=== PATIENT | female | born 1930 | race African-American/Black ===

== ENCOUNTER 2016-08-23 10:22 | Inpatient (IN) | payer MEDICARE, OTHER ==
[~2016-08-23] VITALS: Ht 149.9 cm; Wt 68.0 kg
[~2016-08-23 10:22] MED LIST: ALBU-136; ASPIRIN 81MG; FURO-572 PO; LISI-420 PO; NIFE60TE5 PO
[2016-08-23 10:26] VITALS: BP 201/93
--- NOTE | 2016-08-23 10:37 | NUR ---
DR JASSO AT BEDSIDE.
[2016-08-23] MEDS ORDERED: predniSONE 20 MG TAB PO ONE (10:45)
[2016-08-23] MEDS ORDERED: IPRATROPIUM 0.02% 0.5 MG/2.5 ML NEBU INH ONE (10:45)
[2016-08-23] MEDS ORDERED: ALBUTEROL 0.083% 2.5 MG/3 ML NEBU INH ONE (10:45)
--- NOTE | 2016-08-23 10:45 | NUR ---
PATIENT BIB DAUGHTER WITH C/O SOB AND PRODUCTIVE COUGH X YELLOW 1 MONTH GOT WORSE THE LAST 3 DAYS;HX OF ASTHMA, CABG X3 1994, HTN;RX OF ALBUTEROL ,ISORBIDE, GABAPENTIN, LISONOPRIL , SIMVASTAIN . PT STATES SHE FEELS CONGESTED . DENIES N/V/D; SKIN IS PINK/WARM/DRY; AAOX4 WITH EVEN AND STEADY GAIT;PT DENIES ANY CP AT THIS TIME; PATIENT STATES PAIN OF 0/10 AT THIS TIME;PATIENT POSITIONED FOR COMFORT; HOB ELEVATED; BEDRAILS UP X2; BED DOWN. ALL MONITORS IN PLACED;
--- NOTE | 2016-08-23 10:53 | NUR ---
RADIOLOGY AT [facility] THERAPY ATTEMPT AT A LATER TIME
--- NOTE | 2016-08-23 10:54 | NUR ---
XRAY AT BEDSIDE;
--- NOTE | 2016-08-23 10:58 | NUR ---
ADMITTING DX: SEEKING MEDICAL ATTENTION C/O SOB PRODUCTIVE COUGH WITH YELLOW SECRETIONS X 1 MO WORSENING PAST 3 DAYS HX: ASTHMA AWAKE AND ALERT RESPONSIVE TO WIRELESS OPERATOR VERBAL COMMANDS IN HFW POSITION EDUACTION PROVIDED TO PATIENT AND DAUGHTER WITH ACKNOWLEDGEMENT ON HHN THERAPY AND RESPIRATORY DRUGS HHN THERAPY GIVEN A ORDERED ENCOURAGED DEEP BREATH SND COUGH SPUTUM SPECIMEN COLLECTED MODERATE THICK YELLOWS ECRETIONS TOLERATED HHN THERAPY WITHOUT INCDIENT
[2016-08-23 11:33] LABS: BASOPHILS # (AUTO) 0.1 K/uL (0.00-0.22); BASOPHILS % (AUTO) 1.6 % (0.0-2.0); EOSINOPHILS # (AUTO) 0.1 K/uL (0-0.4); EOSINOPHILS % (AUTO) 1.5 % (0.0-4.0); HEMATOCRIT 34.5 % (36-48); HEMOGLOBIN 11.2 g/dL (12.0-16.0); LYMPHOCYTES # (AUTO) 1.7 K/uL (2.5-16.5); MEAN CORPUSCULAR HEMOGLOBIN 31 pg (27-31); MEAN CORPUSCULAR HGB CONC 33 g/dL (33-37); MEAN CORPUSCULAR VOLUME 95 fL (80-94); MONOCYTES # (AUTO) 0.5 K/uL (0.8-1.0); MONOCYTES % (AUTO) 5.5 % (1.7-9.3); NEUTROPHILS # (AUTO) 5.9 K/uL (1.8-7.7); NEUTROPHILS % (AUTO) 70.4 % (42.2-75.2); PLATELET COUNT (AUTO) 245 K/uL (140-450); RED BLOOD CELL COUNT(AUTO) 3.64 MIL/uL (4.20-5.40); RED CELL DISTRIBUTION WIDTH 12.1 % (11.6-13.7); WHITE BLOOD COUNT (AUTO) 8.3 K/uL (4.8-10.8)
--- NOTE | 2016-08-23 11:38 | NUR ---
PT RESTING ON BED;NO ACUTE DISTRESS NOTED;WILL CONTINUE TO MONITOR PT.
[2016-08-23 11:43] LABS: ANION GAP 11.3 (8-16); CALCIUM 9.7 mg/dL (8.5-10.1); CARBON DIOXIDE 27.9 mmol/L (21-32); CHLORIDE 103 mmol/L (98-107); CREATININE 1.2 mg/dL (0.6-1.3); GLUCOSE 90 mg/dL (74-106); POTASSIUM 4.2 mmol/L (3.5-5.1); SODIUM SERUM 138 mmol/L (136-145); UREA NITROGEN, BLOOD 15 mg/dL (7-18)
[2016-08-23 11:51] LABS: LACTIC ACID 1.1 mmol/L (0.4-2.0)
[2016-08-23 11:53] LABS: PARTIAL THROMBOPLASTIN TIME 29.8 secs (22-35.6); PROTHROMBIN TIME 10.6 secs (10.8-13.4)
[2016-08-23 11:58] LABS: ALANINE AMINOTRANSFERASE 12 U/L (14-59); ALBUMIN 3.1 g/dL (3.4-5.0); ALKALINE PHOSPHATASE 63 U/L (46-116); ASPARTATE AMINOTRANSFERASE 19 U/L (15-37); TOTAL BILIRUBIN 0.4 mg/dL (0.0-1.0)
[2016-08-23] MEDS ORDERED: LEVOFLOXACIN 500 MG/D5W PREMIX 100 ML IV ONE (12:05)
[2016-08-23] MEDS ORDERED: MORPHINE SULFATE 2 MG/ML SYR IVP PRN (12:55)
[2016-08-23] MEDS ORDERED: ACETAMINOPHEN 325 MG TAB PO PRN (12:55)
[2016-08-23] MEDS ORDERED: ONDANSETRON 4 MG/2 ML VIAL IVP PRN (12:55)
--- NOTE | 2016-08-23 12:56 | NUR ---
ASKED PT IF SHE CAN URINATE;PT STATES SHE CANNOT AT THIS MOMENT.
[2016-08-23 13:09] LABS: BLOOD GAS BASE EXCESS -0.4 mmol/L (-2.0-2.0); BLOOD GAS HCO3 23.5 mmol/L; BLOOD GAS PCO2 35.9 mmHg (20-50); BLOOD GAS PH 7.433 (7.35-7.45); BLOOD GAS PO2 65.8 mmHg
[2016-08-23 13:10] LABS: BLOOD GAS O2 SAT% 92.1 % (92.0-98.5)
--- NOTE | 2016-08-23 13:10 | NUR ---
Patient will be admitted to care of DR KEITH. Admited to TELE. Will go to room 122 B. Belongings list completed. Report to DARREN COLIN.
--- NOTE | 2016-08-23 13:59 | NUR ---
AWAKE AND ALERT NO SOB NOTED PATIENT WITH LUNCH TRAY AT THIS TIME LOT BOSS TO ATTEMPT HHN THERAPY AT A LATER TIME
--- NOTE | 2016-08-23 14:00 | NUR ---
RECEIVED PT FROM ER NURSES. PT IS AMBULATORY WITH CANE, GAIT SLIGHTLY UNSTEADY, NEEDS 1 ASSIST. PT WENT TO BATHROOM. TOLERATED WELL. ORIENTED PT TO ROOM AND CALL CABALLERO. PT IS A&OX4. CALL LIGHT WITHIN REACH. WILL CONTINUE TO MONITOR.
[2016-08-23] MEDS: IPRATROPIUM 0.02% 0.5 MG/2.5 ML NEBU IH SCH ×2 (14:21→19:21)
[2016-08-23] MEDS: ALBUTEROL 0.083% 2.5 MG/3 ML NEBU IH SCH ×2 (14:21→19:21)
[2016-08-23 15:00] VITALS: BP 162/85
[2016-08-23] MEDS: AZITHROMYCIN 500 MG in DEXTROSE 5% 250 ML IV SCH (15:55)
--- NOTE | 2016-08-23 16:00 | NUR ---
PT IS RESTING COMFORTABLY IN BED. CALL LIGHT WITHIN REACH. WILL CONTINUE TO MONITOR.
[2016-08-23 16:44] LABS: BILIRUBIN,URINE NEGATIVE (NEGATIVE); BLOOD, URINE NEGATIVE (NEGATIVE); COLOR,URINE YELLOW (YELLOW); LEUKOCYTE ESTERASE ,URINE NEGATIVE (NEGATIVE); NITRITE, URINE NEGATIVE (NEGATIVE); PH,URINE 5.5 (5.0-9.0); PROTEIN,URINE NEGATIVE (NEGATIVE); UGLUCOSE NEGATIVE (NEGATIVE); UROBILINOGEN,URINE 0.2 EU/dL (0.2 - 1)
[2016-08-23 16:54] LABS: APPEARANCE,URINE CLEAR (CLEAR)
--- NOTE | 2016-08-23 17:34 | NUR ---
PT CALLED TO USE BATHROOM. STATED SLIGHTLY DIZZY. NURSE ASSISTED. TOLERATED WELL. BACK TO BED. CALL LIGHT WITHIN REACH. WILL CONTINUE TO MONITOR.
[2016-08-23] MEDS ORDERED: methylPREDNISolone SS 40 MG in WATER STERILE 1 ML IV SCH (18:00)
[2016-08-23] MEDS: methylPREDNISolone SS 40 MG/ML VIAL IVP SCH (18:05)
[2016-08-23 18:18] LABS: BACTERIA,URINE None Seen /HPF (None Seen); RBC,URINE NONE SEEN /HPF (0-5); SQUAMOUS EPITHELIAL CELL,UR None Seen /LPF (0-3 (FEW)); WBC,URINE NONE SEEN /HPF (0-5)
--- NOTE | 2016-08-23 19:37 | NUR ---
ENDORSED CARE OF PT TO CARTON MACHINE OPERATOR NURSE AT BEDSIDE. PT IN STABLE CONDITION.
--- NOTE | 2016-08-23 20:15 | NUR ---
RECEIVED REPORT FROM CHARGE NURSE AWAKE AND ALERT. TALKING ON THE PHONE. ABLE TO VERBALIZE NEEDS WELL. TELEMETRY MONITORING. CARE PLANS FOR THE NIGHT DISCUSSED WITH HER AND CALL LIGHT USE EXPLAINED . DX. PNA AND ASTHMA EXACERBATION.
[2016-08-23 20:33] VITALS: BP 138/78
[2016-08-24] MEDS: methylPREDNISolone SS 40 MG/ML VIAL IVP SCH ×4 (00:39→18:20)
--- NOTE | 2016-08-24 00:40 | NUR ---
SLEPT WELL. AWAKE AT THIS TIME RT WANTS TO URINATE. ASSISTED BY TAX DIRECTOR. BACK TO SLEEP WITH OUT COMPLAINTS.
[2016-08-24 00:55] VITALS: BP 132/78
[2016-08-24] MEDS: ALBUTEROL 0.083% 2.5 MG/3 ML NEBU IH SCH ×4 (01:16→19:21)
[2016-08-24] MEDS: IPRATROPIUM 0.02% 0.5 MG/2.5 ML NEBU IH SCH ×4 (01:17→19:21)
[2016-08-24 04:26] VITALS: BP 153/77
--- NOTE | 2016-08-24 04:32 | NUR ---
SLEEPING WELL. NO RESTLESSNESS NOTED. WITH SCHEDULED BREATHING TREATMENTS. NO SOB NOTED AT THIS TIME.
[2016-08-24 05:47] LABS: HEMOGLOBIN 10.7 g/dL (12.0-16.0); MEAN CORPUSCULAR HEMOGLOBIN 31 pg (27-31); MEAN CORPUSCULAR HGB CONC 33 g/dL (33-37); MEAN CORPUSCULAR VOLUME 95 fL (80-94); PLATELET COUNT (AUTO) 260 K/uL (140-450); RED BLOOD CELL COUNT(AUTO) 3.47 MIL/uL (4.20-5.40); RED CELL DISTRIBUTION WIDTH 11.7 % (11.6-13.7); WHITE BLOOD COUNT (AUTO) 9.5 K/uL (4.8-10.8)
[2016-08-24 06:14] LABS: ALANINE AMINOTRANSFERASE 12 U/L (14-59); ALBUMIN 2.8 g/dL (3.4-5.0); ALKALINE PHOSPHATASE 54 U/L (46-116); ASPARTATE AMINOTRANSFERASE 15 U/L (15-37); CALCIUM 9.6 mg/dL (8.5-10.1); CARBON DIOXIDE 27.1 mmol/L (21-32); CHLORIDE 104 mmol/L (98-107); CREATININE 1.1 mg/dL (0.6-1.3); GLUCOSE 143 mg/dL (74-106); POTASSIUM 4.1 mmol/L (3.5-5.1); SODIUM SERUM 137 mmol/L (136-145); TOTAL BILIRUBIN 0.3 mg/dL (0.0-1.0); TOTAL PROTEIN, SERUM 7.6 g/dL (6.4-8.2); UREA NITROGEN, BLOOD 12 mg/dL (7-18)
[2016-08-24 06:40] LABS: BAND % (MANUAL) 2 % (0-8); LYMPHOCYTES % (MANUAL) 5 % (20-46); MONOCYTES % (MANUAL) 3 % (5-12); NEUTROPHILS % (MANUAL) 90 (43-65)
--- NOTE | 2016-08-24 07:20 | NUR ---
RECEIVED PT FROM CHARGE AUTHORIZER NURSE AT BEDSIDE. PT IS A&OX4. ON NC 2L NOW OXYGEN SAT 98%. NO SOB AT THIS TIME. PT HAS IV ON R AC 20G SL. CALL LIGHT WITHIN REACH. WILL CONTINUE TO MONITOR.
[2016-08-24 08:00] VITALS: BP 159/92
[2016-08-24] MEDS: LISINOPRIL 20 MG TAB PO SCH (08:55)
[2016-08-24] MEDS: ASPIRIN 81 MG TAB.CHEW PO SCH (08:55)
[2016-08-24] MEDS: NIFEdipine 60 MG TABER PO SCH (08:56)
[2016-08-24] MEDS: FUROSEMIDE 20 MG TAB PO SCH (08:56)
[2016-08-24] MEDS: ENOXAPARIN 30 MG/0.3 ML SYR SUBQ SCH (08:57)
--- NOTE | 2016-08-24 09:10 | NUR ---
TOLERATED MORNING MEDS WELL. CALL LIGHT WITHIN REACH. WILL CONTINUE TO MONITOR.
--- NOTE | 2016-08-24 09:18 | NUR ---
PATIENT HAS BEEN SCREENED AND CATEGORIZED MODERATE NUTRITION RISK. PATIENT WILL BE SEEN WITHIN 3-5 DAYS OF ADMISSION. 08/26/16-08/28/[address]
--- NOTE | 2016-08-24 11:00 | NUR ---
PHYSICAL THERAPY WORKED WITH PT. OXY SAT 98%, NO SOB AFTER. WILL CONTINUE TO MONITOR.
[2016-08-24 12:09] VITALS: BP 129/63
--- NOTE | 2016-08-24 12:22 | NUR ---
FAXED INITIAL REVIEW TO [facility] [place] [phone] PHONE ANDERSON [phone]
--- NOTE | 2016-08-24 13:00 | NUR ---
PT IS SLEEPING IN BED. NO DISTRESS NOTED. CALL LIGHT WITHIN REACH. WILL CONTINUE TO MONITOR.
--- NOTE | 2016-08-24 15:00 | NUR ---
GRANDDAUGHTER AT BEDSIDE. NO COMPLAINTS AT THIS TIME. CALL LIGHT WITHIN REACH. WILL CONTINUE TO MONITOR.
[2016-08-24] MEDS: AZITHROMYCIN 500 MG in DEXTROSE 5% 250 ML IV SCH (15:13)
[2016-08-24 16:00] VITALS: BP 147/73
--- NOTE | 2016-08-24 17:30 | NUR ---
PT IS EATING DINNER IN BED. NO COMPLAINTS AT THIS TIME. CALL LIGHT WITHIN REACH. WILL CONTINUE TO MONITOR.
--- NOTE | 2016-08-24 19:30 | NUR ---
ENDORSED CARE OF PT TO PACKING AND SHIPPING CLERK NURSE AT BEDSIDE. PT IN STABLE CONDITION.
--- NOTE | 2016-08-24 19:32 | NUR ---
RECEIVED PT FROM CRISTI RN PT IS AAOX4 AMBULATES WITH CAMPGROUND HAND HL PATENT ON RT AC NOT SOB NOTED RT IS HERE AND WILL GIVE A BREATHING TX
[2016-08-24 20:00] VITALS: BP 96/61
--- NOTE | 2016-08-24 22:00 | NUR ---
PT REPOSITIONED WATCHING TV DENIES ANY DISCOMFORT ON TELEMETRY SR
[2016-08-25] VITALS: BP 104/56
[2016-08-25] MEDS: methylPREDNISolone SS 40 MG/ML VIAL IVP SCH ×3 (00:01→12:03)
[2016-08-25] MEDS: ALBUTEROL 0.083% 2.5 MG/3 ML NEBU IH SCH ×3 (01:08→12:27)
[2016-08-25] MEDS: IPRATROPIUM 0.02% 0.5 MG/2.5 ML NEBU IH SCH ×3 (01:08→12:27)
--- NOTE | 2016-08-25 01:30 | NUR ---
RESP THERAPY IS HERE AND GIVE BREATHING TX PT ON TELEMETRY SR NOT SOB NOTED
[2016-08-25 04:00] VITALS: BP 106/62
--- NOTE | 2016-08-25 04:00 | NUR ---
SPONGE BATHGIVEN LINEN CHANGED PT VOIDING WELL ON TELEMETRY SR NOT SOB NOTED RESP THERAPY HERE GIVEN BREATHING TX
[2016-08-25 05:45] LABS: HEMATOCRIT 33.3 % (36-48); HEMOGLOBIN 11.1 g/dL (12.0-16.0); MEAN CORPUSCULAR HEMOGLOBIN 32 pg (27-31); MEAN CORPUSCULAR HGB CONC 33 g/dL (33-37); MEAN CORPUSCULAR VOLUME 96 fL (80-94); PLATELET COUNT (AUTO) 258 K/uL (140-450); RED BLOOD CELL COUNT(AUTO) 3.47 MIL/uL (4.20-5.40); RED CELL DISTRIBUTION WIDTH 11.9 % (11.6-13.7); WHITE BLOOD COUNT (AUTO) 21.4 K/uL (4.8-10.8)
[2016-08-25 06:25] LABS: ALANINE AMINOTRANSFERASE 13 U/L (14-59); ALBUMIN 2.8 g/dL (3.4-5.0); ALKALINE PHOSPHATASE 51 U/L (46-116); ASPARTATE AMINOTRANSFERASE 12 U/L (15-37); CALCIUM 9.3 mg/dL (8.5-10.1); CARBON DIOXIDE 26.4 mmol/L (21-32); CHLORIDE 102 mmol/L (98-107); CREATININE 1.4 mg/dL (0.6-1.3); GLUCOSE 166 mg/dL (74-106); POTASSIUM 4.4 mmol/L (3.5-5.1); SODIUM SERUM 136 mmol/L (136-145); TOTAL BILIRUBIN 0.2 mg/dL (0.0-1.0); TOTAL PROTEIN, SERUM 7.4 g/dL (6.4-8.2); UREA NITROGEN, BLOOD 25 mg/dL (7-18)
[2016-08-25 06:40] LABS: NEUTROPHILS % (MANUAL) 94 (43-65)
[2016-08-25 06:41] LABS: BAND % (MANUAL) 1 % (0-8); LYMPHOCYTES % (MANUAL) 3 % (20-46); MONOCYTES % (MANUAL) 2 % (5-12); PLATELET ESTIMATE ADEQUATE
--- NOTE | 2016-08-25 07:04 | NUR ---
PT AWAKE AAOX4 DENIES ANY AIN OR DISTRESS ON TELEMETRY SR
--- NOTE | 2016-08-25 07:05 | NUR ---
ASSUMED CONTINUITY OF CARE. NO SIGNS AND SYMPTOMS OF ACUTE DISTRESS NOTED. INITIAL ASSESSMENT DONE. KEEP COMFORTABLE ON BED. EXPLAINED DIAGNOSIS, PLAN OF CARE, PAIN MANAGEMENT TEACHING, USE OF CALL LIGHT/BED/TV/BATHROOM. FALL PRECAUTION APPLIED. CALL LIGHT WITHIN REACH.
[2016-08-25 08:00] VITALS: BP 118/59
--- NOTE | 2016-08-25 08:00 | NUR ---
Patient's Plan of Care was discussed and reviewed with CHIEF OF HOSPITAL MEDICINE: ROSA BRYANT
[2016-08-25] MEDS: LISINOPRIL 20 MG TAB PO SCH (08:39)
[2016-08-25] MEDS: ASPIRIN 81 MG TAB.CHEW PO SCH (08:40)
[2016-08-25] MEDS: NIFEdipine 60 MG TABER PO SCH (08:40)
[2016-08-25] MEDS: FUROSEMIDE 20 MG TAB PO SCH (08:40)
[2016-08-25] MEDS: ENOXAPARIN 30 MG/0.3 ML SYR SUBQ SCH (08:42)
--- NOTE | 2016-08-25 09:04 | NUR ---
PT. CAME FOR PT. EVAL AND TREATMENT. TOLERATED WELL. NO C/O PAIN. NO SOB, NOTED.
--- NOTE | 2016-08-25 10:51 | NUR ---
FAXED CONCURRENT REVIEW TO [facility] [place] [phone] PHONE ANDERSON [phone]
--- NOTE | 2016-08-25 10:56 | NUR ---
WENT TO BATHROOM WITH MINIMUM ASSISTANCE. TOLERATED WELL. NO SOB, NOTED. KEEP FREE FROM FALL.
[2016-08-25 12:00] VITALS: BP 130/61
--- NOTE | 2016-08-25 13:00 | NUR ---
NANNETTE XIONG CAME, INFORMED OF PT. LATEST LABS RESULTS.
--- NOTE | 2016-08-25 15:10 | NUR ---
EXPLAINED TO PT. AND PT. DAUGHTER -ZANA ABOUT MD D/C ORDER, D/C INSTRUCTIONS AND TEACHING, MD D/C PRESCRIPTION LIST EDUCATION, PRIMARY CARE PHYSICIAN FOLLOW-UP IN 1 WEEK, DIAGNOSIS, DIET, PAIN MANAGEMENT TEACHING. PT. AND PT. DAUGHTER -ZANA VERBALIZED UNDERSTANDING.
[2016-08-25] MEDS: AZITHROMYCIN 500 MG in DEXTROSE 5% 250 ML IV SCH (15:45)
[2016-08-25 16:00] VITALS: BP 102/61
--- NOTE | 2016-08-25 17:05 | NUR ---
D/C VIA WHEELCHAIR, ACCOMPANIED BY PT. DAUGHTER -ZANA. AWAKE, ALERT, AND ORIENTED X4. SPEECH CLEAR. NO C/O PAIN. NO SOB, NOTED. IN STABLE CONDITION. INFORMED CHARGE NURSE PAULA VELÁSQUEZ.
== END 2016-08-25 17:05 | disposition home or self-care (01) | DRG 193 ==
LOC: MED 10:22 → MTU 12:58
PROVIDERS: ADMIT Hospitalist; ATTEND Hospitalist
DX: J18.9 Pneumonia, unspecified organism (principal); J96.21 Acute and chronic respiratory failure with hypoxia; J45.901 Unspecified asthma with (acute) exacerbation; I25.10 Atherosclerotic heart disease of native coronary artery without angina pectoris; E78.5 Hyperlipidemia, unspecified; I10 Essential (primary) hypertension; Z87.891 Personal history of nicotine dependence; Z95.1 Presence of aortocoronary bypass graft; Z88.2 Allergy status to sulfonamides; Z79.899 Other long term (current) drug therapy; Z82.49 Family history of ischemic heart disease and other diseases of the circulatory system
CPT/HCPCS: 36415; 36600; 71010; 80053; 81001; 82803; 83605; 83880; 84484; 85025; 85610; 85730; 87040; 87070; 87081; 87205; 89220; 93005; 94640; 96365; 97110; 97116; 97530; 99285; J0456; J1650; J1956; J2920; J7030; J7060; J7512; J7613; J7644; Q0092

== ENCOUNTER 2016-10-17 22:24 | Inpatient (IN) | payer MEDICARE ==
[~2016-10-17] VITALS: Ht 149.9 cm; Wt 63.5 kg
[2016-10-17 22:31] VITALS: BP 123/57
[2016-10-17] MEDS ORDERED: DOCU-67 PO (22:40)
[2016-10-17] MEDS ORDERED: LISI5TAB18 PO (22:40)
[2016-10-17] MEDS ORDERED: PRON INH (22:40)
[2016-10-17] MEDS ORDERED: ASPI81CT89 PO (22:40)
[2016-10-17] MEDS ORDERED: ISOS10TA9 PO (22:40)
[2016-10-17] MEDS ORDERED: ALBU0.0946 IH (22:40)
[2016-10-17] MEDS ORDERED: ALBU117P IH (22:40)
[2016-10-17] MEDS ORDERED: SIMV20TA1 PO (22:40)
[2016-10-17] MEDS ORDERED: FLONAS NS (22:41)
[2016-10-17] MEDS ORDERED: FLUT1BLS IH (22:41)
--- NOTE | 2016-10-17 22:44 | NUR ---
BIB WHEELCHAIR TO ER BED 7
--- NOTE | 2016-10-17 22:50 | NUR ---
86 Y/O F W/C/O SOB, AND COUGH X 1WK. MED HX PNA, ASTHMA, COPD, HTN, OPEN HEART SURGERY, GUADRUPLE BYPASS 1994. O2 SAT 98 % RA, VSS. LABORED BREATHING NOTED, ER MD MADE AWARE. RT CALLED AT BEDSIDE.
--- NOTE | 2016-10-17 22:50 | NUR ---
Patient being evaluated by physician at bedside.
[2016-10-17 23:17] LABS: HEMOGLOBIN 10.6 g/dL (12.0-16.0); MEAN CORPUSCULAR HEMOGLOBIN 31 pg (27-31); MEAN CORPUSCULAR HGB CONC 32 g/dL (33-37); MEAN CORPUSCULAR VOLUME 96 fL (80-94); PLATELET COUNT (AUTO) 336 K/uL (140-450); RED BLOOD CELL COUNT(AUTO) 3.45 MIL/uL (4.20-5.40); RED CELL DISTRIBUTION WIDTH 12.3 % (11.6-13.7); WHITE BLOOD COUNT (AUTO) 17.6 K/uL (4.8-10.8)
[2016-10-17 23:31] LABS: ANION GAP 14.5 (8-16); CARBON DIOXIDE 26.8 mmol/L (21-32); CHLORIDE 100 mmol/L (98-107); CREATININE 1.4 mg/dL (0.6-1.3); GLUCOSE 97 mg/dL (74-106); POTASSIUM 3.3 mmol/L (3.5-5.1); SODIUM SERUM 138 mmol/L (136-145); UREA NITROGEN, BLOOD 22 mg/dL (7-18)
[2016-10-17 23:32] LABS: LYMPHOCYTES % (MANUAL) 15 % (20-46); MONOCYTES % (MANUAL) 6 % (5-12)
[2016-10-17 23:39] LABS: ALBUMIN 2.7 g/dL (3.4-5.0); ASPARTATE AMINOTRANSFERASE 20 U/L (15-37); TOTAL BILIRUBIN 0.6 mg/dL (0.0-1.0)
--- NOTE | 2016-10-17 23:40 | NUR ---
PT TAKEN FOR CT SCAN VIA [facility].
--- NOTE | 2016-10-18 00:02 | NUR ---
PT BACK FROM CT SCAN.
[2016-10-18] MEDS ORDERED: VANCOMYCIN PER PHARMACY MC PRN (00:25)
[2016-10-18] MEDS ORDERED: MEROPENEM 1,000 MG in NACL 0.9% 100 ML IV ONE (00:25)
[2016-10-18] MEDS ORDERED: VANCOMYCIN 1GM/DEXT 5% PREMIX 200 ML IV ONE (00:25)
[2016-10-18] MEDS ORDERED: MEROPENEM 1,000 MG VIAL IV ONE (00:38)
[2016-10-18] MEDS ORDERED: VANCOMYCIN 1,000 MG VIAL ONE (01:06)
--- NOTE | 2016-10-18 01:12 | NUR ---
PT RESTING IN BED, CURRENTLY RECEIVING IV ANTIBIOTICS, NO S/S OF DISTRESS NOTED. DAUGHTER AT BEDSIDE.
[2016-10-18] MEDS ORDERED: LORazepam 2 MG/ML VIAL IVP PRN (02:00)
[2016-10-18] MEDS ORDERED: MORPHINE SULFATE 2 MG/ML SYR IVP PRN (02:00)
[2016-10-18] MEDS ORDERED: ONDANSETRON 4 MG/2 ML VIAL IVP PRN (02:00)
[2016-10-18] MEDS ORDERED: ACETAMINOPHEN 325 MG TAB PO PRN (02:00)
--- NOTE | 2016-10-18 02:18 | NUR ---
Patient will be admitted to care of DR GRIMALDO. Admited to TELEMETRY. Will go to [id number] . Belongings list completed. Report to DARREN YEN.
--- NOTE | 2016-10-18 02:20 | NUR ---
PT TRASFERRED TO FLOOR VIA [facility]. ACCOMPANIED BY RN AND EMT.
[2016-10-18 02:45] VITALS: BP 158/65
--- NOTE | 2016-10-18 02:45 | NUR ---
PATIENT CAME FROM THE ER VIA GURNEY ACCOMPANIED BY DAUGHTER. PT IS AOX3, ABLE TO MAKE NEEDS KNOWN. IS ON O2 VIA NC AT 2 L, WELL TOLERATED BY PT. WITH AN IV TO THE LAC 20 G WITH VANCOMYCIN RUNNING, INTACT AND PATENT. INITAL ASSESSMENT DONE. ASSESSMENT QUESTIONS ANSWERED BY DAUGHTER. ORIENTED PATIENT AND DAUGHTER TO THE UNIT, VERBALIZED UNDERSTANDING. WILL CONTINUE TO MONITOR. ALL NEEDS ATTENDED. CALL LIGHT WITHIN REACH. SAFETY CHECKS IN PLACE.
--- NOTE | 2016-10-18 03:30 | NUR ---
RT CALLED AND SAID THAT THE PATIENT DOES NOT NEED THE O2.
[2016-10-18 04:00] VITALS: BP 138/66
[2016-10-18] MEDS ORDERED: PIPERACILLIN/TAZOBACTAM 2.25 GM VIAL IV ONE (04:07)
--- NOTE | 2016-10-18 04:15 | NUR ---
VITALS STABLE. NO S/S OF DISTRESS. NO COMPLAINTS OF PAIN. HANGED ZOSYN. WILL CONTINUE TO MONITOR FOR ANY CHANGES.
[2016-10-18] MEDS: PIPER/TAZO 2.25GM/D5W PREMIX 50 ML IV SCH ×4 (04:17→21:22)
[2016-10-18] MEDS ORDERED: PIPERACILLIN/TAZOBACTAM 3.375 GM in DEXTROSE 5% 50 ML IV SCH (05:00)
--- NOTE | 2016-10-18 05:30 | NUR ---
ASSISTED PATIENT TO THE BATHROOM. NOTED PATIENT WITH WHEEZING AND PATIENT COMPLAINED OF SHORTNESS OF BREATH. SAID SHE WANTED A BREATHING TREATMENT. CALLED RT. Addendum: 10/18/16 at 0545 by Ashley Henderson RN PUT PT BACK ON O2 VIA NC AT 2 L
[2016-10-18] MEDS: ALBUTEROL 0.083% 2.5 MG/3 ML NEBU IH PRN ×3 (05:42→19:16)
[2016-10-18] MEDS: IPRATROPIUM 0.02% 0.5 MG/2.5 ML NEBU IH SCH ×4 (06:49→23:55)
--- NOTE | 2016-10-18 07:17 | NUR ---
ENDORSED TO MORNING SHIFT NURSE FOR CONTINUITY OF CARE, IN STABLE CONDITION.
--- NOTE | 2016-10-18 07:21 | NUR ---
RECEIVED HANDOFF REPORT FROM PM RN. PATIENT A&OX4. PATIENT DENIES PAIN. RALES NOTED IN UPPER LOBES. PATIENT DENIES COUGH AND SPUTUM. IV SITE PATENT AND INTACT. NO SIGNS AND SYMPTOMS OF ACUTE DISTRESS NOTED. CALL LIGHT WITHIN REACH. WILL CONTINUE TO MONITOR.
[2016-10-18 08:00] VITALS: BP 129/83
--- NOTE | 2016-10-18 09:15 | NUR ---
PATIENT HAS BEEN SCREENED AND CATEGORIZED HIGH NUTRITION RISK. PATIENT WILL BE SEEN WITHIN 1-2 DAYS OF ADMISSION. 10/18/16-10/19/[address]
--- NOTE | 2016-10-18 10:39 | NUR ---
AM MEDS GIVEN WITH EDUCATION. PATIENT VERBALIZED UNDERSTANDING. PATIENT HAS COUGH WITH SPUTUM PRODUCTION, MODERATE AMOUNT OF THICK BRIGHT YELLOW SPUTUM. PATIENT DENIES PAIN. HELPED PATIENT SIT UP IN BED. NO SIGNS AND SYMPTOMS OF ACUTE DISTRESS. CALL LIGHT WITHIN REACH. WILL CONTINUE TO MONITOR.
[2016-10-18 12:00] VITALS: BP 165/78
--- NOTE | 2016-10-18 13:11 | NUR ---
DR. ANNE IN TO SEE PATIENT. PLAN OF CARE DISCUSSED, PT VERBALIZED UNDERSTANDING. WILL CONTINUE TO MONITOR.
[2016-10-18 13:14] LABS: PROTHROMBIN TIME 10.6 secs (10.8-13.4)
--- NOTE | 2016-10-18 13:23 | NUR ---
PATIENT PRESENTING WITH INCREASED SOB WITH AMBULATION FROM SIDE OF BED INTO BED DESCENDING SATURATION TO 92% ON ROOM AIR POST HHN THERAPY PLACED PATIENT ON HUMIDIFIED SUPPLEMENTAL OXYGEN AT 2 LPM VIA NASAL CANNULA DORITA/RN NOTIFIED
--- NOTE | 2016-10-18 13:51 | NUR ---
10/18/16 RD INITIAL ASSESSMENT COMPLETED PLEASE REFER TO NUTRITION ASSESSMENT UNDER CARE ACTIVITY FOR ESTIMATED NUTRITIONAL NEEDS. 1. WHEN MEDICALLY FEASIBLE INITIATE PO DIET - 2G SODIUM, MECHANICAL SOFT DIET 2. RD TO FOLLOW-UP 2-[address]
--- NOTE | 2016-10-18 14:08 | NUR ---
CM NOTE INITIAL REVIEW FAXED TO [facility] / FAX# [phone], ATTN: ANDERSON [phone]
[2016-10-18] MEDS ORDERED: LIDOCAINE 1% 500 MG/50 ML VIAL INJ SCH (15:45)
--- NOTE | 2016-10-18 15:45 | NUR ---
RADIOLOGY HERE FOR THORACENTESIS. NO SIGNS OR SYMPTOMS OF ACUTE DISTRESS NOTED. WILL CONTINUE TO MONITOR.
[2016-10-18] MEDS ORDERED: LIDOCAINE 1% 50 ML ONE (15:53)
[2016-10-18 16:00] VITALS: BP 132/69
--- NOTE | 2016-10-18 17:01 | NUR ---
PATIENT STATES CHEST PAIN. DR. ANNE MADE AWARE. NO SIGNS OR SYMPTOMS OF ACUTE DISTRESS. CALL LIGHT WITHIN REACH. FAMILY AT BEDSIDE. WILL CONTINUE TO MONITOR.
[2016-10-18] MEDS: HYDROcodone/APAP 5/325 MG 1 TAB TAB PO PRN (17:46)
[2016-10-18 18:00] LABS: GLUCOSE,BODY FLUID 77 mg/dL
[2016-10-18 18:02] LABS: ALBUMIN,BODY FLUID 1.6 g/dL; APPEARANCE,SPUN,BODY FLUID CLEAR (CLEAR); APPEARANCE,UNSPUN,BODY FLUID CLEAR (CLEAR); COLOR,BODY FLUID YELLOW (LT YELLOW); SPECIMENTYPE,BODY FLUID THORACENTESIS; TOTAL VOLUME,BODY FLUID 650 mL
--- NOTE | 2016-10-18 19:14 | NUR ---
ENDORSED PLAN OF CARE TO PM RN. PATIENT STABLE. SAFETY MEASURES ENSURED. CALL LIGHT WITHIN REACH.
--- NOTE | 2016-10-18 19:15 | NUR ---
RECEIVED REPORT FROM AM NURSE. PT IS AOX4, ABLE TO MAKE NEEDS KNOWN. IS CURRENTLY HAVING HER BREATHING TREATMENT. WITH FAMILY AT BEDSIDE. WITH AN IV TO THE RIGHT FA 22 G, INTACT AND PATENT. NO S/S OF PAIN AT THIS TIME. INITIAL ASSESSMENT DONE. ON TELE MONITORING. REORIENTED PT TO THE UNIT, VERBALIZED UNDERSTANDING. WILL CONTINUE TO MONITOR. ALL NEEDS ATTENDED. CALL LIGHT WITHIN REACH. SAFETY CHECKS IN PLACE.
[2016-10-18 20:00] VITALS: BP 106/68
[2016-10-18 20:59] LABS: RBC, BODY FLUID 90 /cu. mm.; WBC, BODY FLUID 9 /cu. mm.
--- NOTE | 2016-10-18 22:12 | NUR ---
HANGED ONOFRESYN, IV SITE INTACT AND PATENT. WILL CONTINUE TO MONITOR.
--- NOTE | 2016-10-18 22:45 | NUR ---
ASSISTED PT TO THE BATHROOM, HAD NO S/S OF DISTRESS. WILL CONTINUE TO MONITOR. ALL NEED ATTENDED. CALL LIGHT WITHIN REACH. SAFETY CHECKS IN PLACE.
[2016-10-19] VITALS: BP 122/69
--- NOTE | 2016-10-19 | NUR ---
VITALS STABLE. NO S/S OF DISTRESS. NO COMPLAINTS OF PAIN. HAVING BREATHING TREATMENT AT BEDSIDE. WILL CONTINUE TO MONITOR FOR ANY CHANGES.
--- NOTE | 2016-10-19 01:55 | NUR ---
MADE ROUNDS. PATIENT ASLEEP. NO S/S OF DISTRESS. CALL LIGHT WITHIN REACH. SAFETY CHECKS IN PLACE. WILL CONTINUE TO MONITOR FOR ANY CHANGES.
[2016-10-19] MEDS: PIPER/TAZO 2.25GM/D5W PREMIX 50 ML IV SCH ×4 (03:26→21:08)
[2016-10-19 04:00] VITALS: BP 130/73
--- NOTE | 2016-10-19 04:00 | NUR ---
VITAL SIGNS STABLE. NO S/S OF DISTRESS. NO COMPLAINTS OF PAIN. WILL CONTINUE TO MONITOR. ALL NEEDS ATTENDED. CALL LIGHT WITHIN REACH. SAFETY CHECKS IN PLACE.
--- NOTE | 2016-10-19 05:05 | NUR ---
PT STATED THAT SHE WAS HAVING SHORTNESS OF BREATH, TURNED THE O2 TO 5 L, CALLED RT.
[2016-10-19] MEDS: ALBUTEROL 0.083% 2.5 MG/3 ML NEBU IH PRN ×2 (05:18→18:21)
--- NOTE | 2016-10-19 05:30 | NUR ---
WAS INFORMED BY RT THAT HE PUT THE O2 DOWN TO 4 L, WELL TOLERATED BY THE PATIENT. WILL CONTINUE TO MONITOR FOR ANY CHANGES.
[2016-10-19 06:34] LABS: HEMATOCRIT 32.4 % (36-48); HEMOGLOBIN 10.7 g/dL (12.0-16.0); MEAN CORPUSCULAR HEMOGLOBIN 31 pg (27-31); MEAN CORPUSCULAR HGB CONC 33 g/dL (33-37); MEAN CORPUSCULAR VOLUME 94 fL (80-94); PLATELET COUNT (AUTO) 348 K/uL (140-450); RED BLOOD CELL COUNT(AUTO) 3.45 MIL/uL (4.20-5.40); RED CELL DISTRIBUTION WIDTH 12.4 % (11.6-13.7); WHITE BLOOD COUNT (AUTO) 19.1 K/uL (4.8-10.8)
[2016-10-19] MEDS: IPRATROPIUM 0.02% 0.5 MG/2.5 ML NEBU IH SCH ×3 (06:53→18:21)
[2016-10-19 07:08] LABS: ALBUMIN 2.2 g/dL (3.4-5.0); ANION GAP 12.4 (8-16); ASPARTATE AMINOTRANSFERASE 24 U/L (15-37); CARBON DIOXIDE 28.6 mmol/L (21-32); CHLORIDE 99 mmol/L (98-107); CREATININE 1.6 mg/dL (0.6-1.3); GLUCOSE 90 mg/dL (74-106); MAGNESIUM 1.8 mg/dL (1.8-2.4); SODIUM SERUM 136 mmol/L (136-145); TOTAL BILIRUBIN 0.7 mg/dL (0.0-1.0); UREA NITROGEN, BLOOD 22 mg/dL (7-18)
--- NOTE | 2016-10-19 07:17 | NUR ---
ENDORSED TO AM SHIFT FOR CONTINUITY OF CARE, IN STABLE CONDITION. NO S/S OF DISTRESS.
--- NOTE | 2016-10-19 07:18 | NUR ---
PT AWAKE AND ALERT, NO SIGNS OF ACUTE DISTRESS. BOWEL SOUNDS ACTIVE IN ALL 4 QUADRANTS, SKIN INTACT. AMBULATORY WITH CANE. ON O2 4L NC. IV PATENT AND ASYMPTOMATIC. PATIENT DENIES PAIN AT THIS TIME. RE-ORIENTED TO HOSPITAL AND TO UNIT, PATIENT VERBALIZED UNDERSTANDING. BED IN LOW POSITION WITH BILATERAL HALF SIDE RAILS UP, CALL LIGHT WITHIN REACH. WILL CONTINUE TO MONITOR.
[2016-10-19 08:00] VITALS: BP 134/75
[2016-10-19 08:05] LABS: EOSINOPHILS % (MANUAL) 2 % (0-4); LYMPHOCYTES % (MANUAL) 10 % (20-46); MONOCYTES % (MANUAL) 2 % (5-12)
--- NOTE | 2016-10-19 09:18 | NUR ---
PT SLEEPING, NO SIGNS OF ACUTE DISTRESS. BED IN LOW POSITION WITH BILATERAL HALF SIDE RAILS UP, CALL LIGHT WITHIN REACH. WILL CONTINUE TO MONITOR.
[2016-10-19] MEDS ORDERED: VANCOMYCIN PER PHARMACY MC PRN (11:00)
[2016-10-19] MEDS: HYDROcodone/APAP 5/325 MG 1 TAB TAB PO PRN (11:42)
--- NOTE | 2016-10-19 11:50 | NUR ---
PT IS SITTING UP RIGHT, EATING LUNCH, DAUGHTER AT BEDSIDE. NO SIGNS OF ACUTE DISTRESS, BED ON LOW POSITION, BILATERAL HALF SIDE RAILS UP, CALL LIGHT WITHIN REACH. WILL CONTINUE TO MONITOR.
[2016-10-19 12:00] VITALS: BP 138/77
--- NOTE | 2016-10-19 13:30 | NUR ---
Clinical REVIEW FAXED TO [facility] / FAX# [phone], ATTN: ANDERSON [phone]
--- NOTE | 2016-10-19 13:30 | NUR ---
PAGED DR. ANNE PT UNABLE TO TOLERATE REGULAR DIET, STATES SHE EATS SOFT FOODS. WILL WAIT FOR NEW ORDER.
--- NOTE | 2016-10-19 13:35 | NUR ---
RECEIVED CALL BACK FROM DR ANNE, PER DR ANNE PUT PT ON SOFT CARDIAC DIET. NOTED, WILL CARRY OUT.
[2016-10-19] MEDS ORDERED: VANCOMYCIN 1GM/DEXT 5% PREMIX 200 ML IV SCH (14:00)
--- NOTE | 2016-10-19 15:55 | NUR ---
PT AWAKE AND RESTING IN BED, SHOWING NO SIGNS OF ACUTE DISTRESS, BED IN LOW POSITION, BILATERAL HALF SIDE RAILS UP, CALL LIGHT WITHIN REACH . WILL CONTINUE TO MONITOR.
[2016-10-19 16:00] VITALS: BP 116/64
--- NOTE | 2016-10-19 17:30 | NUR ---
CALLED RT TO REQUEST BREATHING TREATMENT.
--- NOTE | 2016-10-19 17:50 | NUR ---
PT SITTING UP IN BED EATING DINNER, DAUGHTER AT BEDSIDE. NO SIGNS OF ACUTE DISTRESS, BED IN LOW POSITION, CALL LIGHT WITHIN REACH. WILL CONTINUE TO MONITOR.
--- NOTE | 2016-10-19 19:27 | NUR ---
ENDORSED PT TO NIGHT NURSE FOR CONTINUITY OF CARE. PT AWAKE AND ALERT, NO SIGNS OF ACUTE DISTRESS. BED IN LOW POSITION, CALL LIGHT WITHIN REACH.
--- NOTE | 2016-10-19 19:30 | NUR ---
ASSUMED CARE OF PATIENT, AWAKE, ALERT AND ORIENTED. NO COMPLAINS. FAMILY AT BEDSIDE. CALL LIGHT WITHIN REACH.
--- NOTE | 2016-10-19 20:00 | NUR ---
PLAN OF CARE DISCUSSED WITH PATIENT, VERBALIZED UNDERSTANDING WELL. CALL LIGHT WITHIN REACH. ASSISTED WITH BRP WITH LINDAE.
[2016-10-19 21:27] VITALS: BP 98/64
[2016-10-20] VITALS: BP 118/56
--- NOTE | 2016-10-20 00:01 | NUR ---
ASSISTED WITH BRP BY BI TESTER. NO COMPLAINS. VITAL SIGNS STABLE. CALL LIGHT WITHIN REACH. AFEBRILE.
[2016-10-20] MEDS: IPRATROPIUM 0.02% 0.5 MG/2.5 ML NEBU IH SCH ×2 (00:18→07:19)
[2016-10-20] MEDS: PIPER/TAZO 2.25GM/D5W PREMIX 50 ML IV SCH ×2 (03:10→09:19)
[2016-10-20 04:40] VITALS: BP 127/79
--- NOTE | 2016-10-20 04:41 | NUR ---
VITAL SIGNS STABLE. NO COMPLAINS. AFEBRILE. CALL LIGHT WITHIN REACH.
[2016-10-20] MEDS: ALBUTEROL 0.083% 2.5 MG/3 ML NEBU IH PRN (05:35)
[2016-10-20 06:12] LABS: HEMOGLOBIN 9.2 g/dL (12.0-16.0); MEAN CORPUSCULAR HEMOGLOBIN 31 pg (27-31); MEAN CORPUSCULAR HGB CONC 33 g/dL (33-37); MEAN CORPUSCULAR VOLUME 95 fL (80-94); PLATELET COUNT (AUTO) 276 K/uL (140-450); RED BLOOD CELL COUNT(AUTO) 2.96 MIL/uL (4.20-5.40); RED CELL DISTRIBUTION WIDTH 12.1 % (11.6-13.7); WHITE BLOOD COUNT (AUTO) 15.3 K/uL (4.8-10.8)
[2016-10-20 07:11] LABS: LYMPHOCYTES % (MANUAL) 14 % (20-46); MONOCYTES % (MANUAL) 5 % (5-12)
--- NOTE | 2016-10-20 07:16 | NUR ---
ENDORSED CARE AT BEDSIDE WITH OBIE BANKS, PATIENT IN STABLE CONDITION.
[2016-10-20 07:25] LABS: ANION GAP 11.1 (8-16); CARBON DIOXIDE 27.5 mmol/L (21-32); CHLORIDE 102 mmol/L (98-107); CREATININE 1.9 mg/dL (0.6-1.3); GLUCOSE 87 mg/dL (74-106); POTASSIUM 3.6 mmol/L (3.5-5.1); SODIUM SERUM 137 mmol/L (136-145); UREA NITROGEN, BLOOD 23 mg/dL (7-18)
--- NOTE | 2016-10-20 07:26 | NUR ---
RECEIVED PT IN BED. AWAKE. ALERT, ORIENTEDX4. NO SOB NOTED. ON 4LPM NC. RESPIRATORY THERAPIST JUST FINISHED GIVING BREATHING TREATMENT. POSITIVE BOWEL SOUNDS NOTED ON FOUR QUADRANTS. PT AMBULATORY WITH ASSIST. SAFETYL PREACUTION IN PLACE. CALL LIGHT WITHIN REACH.
[2016-10-20 08:00] VITALS: BP 128/68
[2016-10-20] MEDS ORDERED: LEVO750T2 PO (10:07)
[2016-10-20] MEDS ORDERED: AMOX-999 PO (10:09)
[2016-10-20 12:00] VITALS: BP 133/79
--- NOTE | 2016-10-20 12:25 | NUR ---
CALLED DAUGHTER ZANA [phone] MADE AWARE OF DISCHARGE ORDER. DAUGHTER WILL COME TO THE HOSPITAL AND CONVEYOR MONITOR PT IN 30 MINS.
--- NOTE | 2016-10-20 13:00 | NUR ---
ZANA DAUGHTER CAME TO SATELLITE MANAGER PT. DISCHARGE INSTRUCTIONS AND HEALTH TEACHINGS PROVIDED, AND EXPLAINED TO PT AND DAUGHTER VERBALIZED UNDERSTANDING. NO SOB NOTED AT THIS TIME. DENIES ANY PAIN OR DISCOMFORT AT THIS TIME. NAME ARM BAND REMOVED. IV CANNULA REMOVED AND INTACT. TELEMONITOR REMOVED.
--- NOTE | 2016-10-20 13:01 | NUR ---
PT VERBALIZED UNDERSTANDING REGARDING DISCHARGE INSTRUCTIONS AND TEACHINGS AND SIGNED DISCHARGE PAPERS. DAUGHTER ZANA AT BEDSIDE.
--- NOTE | 2016-10-20 13:20 | NUR ---
PT WHEELED OUT TO THE HOSPITAL PARKING LOT WITH DAUGHTER ZANA ASSISTED BY JAYDON. NO SOB NOTED. PT DISCHARGED ON STABLE CONDITION.
== END 2016-10-20 13:20 | disposition home or self-care (01) | DRG 871 ==
LOC: MED 22:24 → MTU 10-18 02:03
PROVIDERS: ADMIT Hospitalist; ATTEND Hospitalist
PROC: 0W9B3ZZ Drainage of Left Pleural Cavity, Percutaneous Approach (ICD-10-PCS; principal; 2016-10-18)
DX: A41.9 Sepsis, unspecified organism (principal); J18.9 Pneumonia, unspecified organism; J90 Pleural effusion, not elsewhere classified; N17.9 Acute kidney failure, unspecified; J44.0 Chronic obstructive pulmonary disease with (acute) lower respiratory infection; E11.9 Type 2 diabetes mellitus without complications; D64.9 Anemia, unspecified; I10 Essential (primary) hypertension; E78.5 Hyperlipidemia, unspecified; E87.6 Hypokalemia; I25.10 Atherosclerotic heart disease of native coronary artery without angina pectoris; M19.90 Unspecified osteoarthritis, unspecified site; J30.2 Other seasonal allergic rhinitis; Z95.1 Presence of aortocoronary bypass graft; Z88.2 Allergy status to sulfonamides; Z87.891 Personal history of nicotine dependence
CPT/HCPCS: 36415; 36600; 71010; 71250; 76942; 80048; 80053; 80202; 82803; 82945; 82948; 83735; 83880; 84157; 85025; 85610; 85730; 87040; 87070; 87075; 87081; 87205; 89051; 94640; 96365; 96367; 99285; J2001; J2185; J2543; J3370; J7030; J7060; J7613; J7644; Q0092

== ENCOUNTER 2016-10-23 04:11 | Inpatient (IN) | payer MEDICARE ==
[~2016-10-23] VITALS: Ht 149.9 cm; Wt 60.8 kg
[~2016-10-23 04:11] MED LIST changes: +ALBU-118 IH; -ALBU-136; +ALBU117P IH; +AMOX-999 PO; +ASPI81CT89 PO; -ASPIRIN 81MG; +DOCU-299 PO; +FLONAS NS; +FLUT1BLS IH; -FURO-572 PO; +ISOS10TA9 PO; +LEVO750T2 PO; -LISI-420 PO; +LISI5TAB18 PO; -NIFE60TE5 PO; +PRON INH; +SIMV20TA1 PO
--- NOTE | 2016-10-23 04:11 | NUR ---
Patient was BIBA and taken to bed 07 via gurney per EMS.
--- NOTE | 2016-10-23 04:12 | NUR ---
Dr. Madsen evaluating patient at bedside.
[2016-10-23 04:15] VITALS: BP 203/141
--- NOTE | 2016-10-23 04:15 | NUR ---
12 LEAD EKG DONE, NOTED BY
--- NOTE | 2016-10-23 04:17 | NUR ---
XRAY at bedside.
--- NOTE | 2016-10-23 04:20 | NUR ---
GAUGE 20 IV LINE ESTABLISHED TO THE RIGHT FOREARM. BLOOD ALSO DRAWN AND SENT TO THE LAB.
--- NOTE | 2016-10-23 04:30 | NUR ---
CONSENT FOR CHEST TUBE PLACEMENT OBTAINED FROM DAUGHTER.
[2016-10-23 04:37] LABS: HEMOGLOBIN 9.5 g/dL (12.0-16.0)
[2016-10-23 04:42] LABS: HEMATOCRIT 28.5 % (36-48); MEAN CORPUSCULAR HEMOGLOBIN 32 pg (27-31); MEAN CORPUSCULAR HGB CONC 33 g/dL (33-37); MEAN CORPUSCULAR VOLUME 96 fL (80-94); PLATELET COUNT (AUTO) 304 K/uL (140-450); RED BLOOD CELL COUNT(AUTO) 2.98 MIL/uL (4.20-5.40); RED CELL DISTRIBUTION WIDTH 12.2 % (11.6-13.7); WHITE BLOOD COUNT (AUTO) 17.2 K/uL (4.8-10.8)
--- NOTE | 2016-10-23 04:50 | NUR ---
MD AT BEDSIDE DISCUSSING PLAN OF CARE WITH PT/FAMILY.
[2016-10-23 04:54] LABS: ALBUMIN 2.3 g/dL (3.4-5.0); ANION GAP 14.5 (8-16); ASPARTATE AMINOTRANSFERASE 50 U/L (15-37); CARBON DIOXIDE 27.7 mmol/L (21-32); CHLORIDE 97 mmol/L (98-107); CREATININE 1.5 mg/dL (0.6-1.3); GLUCOSE 86 mg/dL (74-106); POTASSIUM 4.2 mmol/L (3.5-5.1); SODIUM SERUM 135 mmol/L (136-145); TOTAL BILIRUBIN 0.5 mg/dL (0.0-1.0); UREA NITROGEN, BLOOD 21 mg/dL (7-18)
[2016-10-23 04:58] LABS: PROTHROMBIN TIME 11.7 secs (10.8-13.4)
[2016-10-23 05:05] LABS: BASOPHILS % (MANUAL) 0 % (0-2); EOSINOPHILS % (MANUAL) 0 % (0-4); LYMPHOCYTES % (MANUAL) 15 % (20-46); MONOCYTES % (MANUAL) 3 % (5-12)
--- NOTE | 2016-10-23 05:30 | NUR ---
CALLED BACK AFTER PAGED BY DATA SECURITY COORDINATOR. HE SPOKE WITH , DISCUSSED CASE. PT. ADMITTED TO TELEMETRY UNIT FOR LEFT PLEURAL EFFUSION,PNEUMONIA.
[2016-10-23] MEDS ORDERED: PIPERACILLIN/TAZOBACTAM 3.375 GM in DEXTROSE 5% 50 ML IV ONE (05:35)
--- NOTE | 2016-10-23 05:42 | NUR ---
ZOSYN 3.375 GM IVPB GIVEN ORDERED.
[2016-10-23] MEDS ORDERED: PIPERACILLIN/TAZOBACTAM 3.375 GM VIAL IV ONE (05:44)
[2016-10-23] MEDS ORDERED: ACETAMINOPHEN 325 MG TAB PO PRN (05:45)
[2016-10-23] MEDS ORDERED: LORazepam 2 MG/ML VIAL IVP PRN (05:45)
[2016-10-23] MEDS ORDERED: HYDROcodone/APAP 5/325 MG 1 TAB TAB PO PRN ×2 (05:45)
[2016-10-23] MEDS ORDERED: ONDANSETRON 4 MG/2 ML VIAL IVP PRN (05:45)
[2016-10-23] MEDS ORDERED: DOCUSATE SODIUM 100 MG GELCAP PO PRN ×2 (05:55→09:29)
--- NOTE | 2016-10-23 05:55 | NUR ---
REPORT GIVEN TO TIEN BANKS. PT.GOING TO ROOM 124-A. PT. REMAINS STABLE AND PAIN FREE.
--- NOTE | 2016-10-23 06:12 | NUR ---
TRANSFERRED TO FLOOR VIA ACLS PROTOCOL STABLE. TRANSFER UNEVENTFUL. ORDERED PT.TO BE ADMITTED MED-SURG STATUS INSTEAD.
[2016-10-23 06:15] VITALS: BP 136/90
--- NOTE | 2016-10-23 06:15 | NUR ---
PT CAME IN FROM ER VIA [facility]. PT AAOX4 ON NONREBREATHER MASK AT 100% O2. PT HAS 20G IV ON L AC. FAMILY IS AT BEDSIDE. DISCUSSED THE PLAN OF CARE WITH PATIENT AND FAMILY, PT AND FAMILY VERBALIZED UNDERSTANDING. PT SKIN IS INTACT WITH BILATERAL AC ECCHYMOSIS. PT IN STABLE CONDITION, NO SIGNS OF DISTRESS NOTED. BED IN LOW POSITION, CALL LIGHT WITHIN REACH. WILL CONTINUE TO MONITOR.
--- NOTE | 2016-10-23 06:30 | NUR ---
PLACED PT ON 4LNC O2 SAT OF 100% AND BREATHING TX NOT GIVEN DUE TO MEDS NOT BEING IN PIXIS
--- NOTE | 2016-10-23 07:10 | NUR ---
ENDORSED PT AT BEDSIDE TO DAY SHIFT RN. PT IS IN STABLE CONDITION.
--- NOTE | 2016-10-23 07:11 | NUR ---
RECEIVED REPORT FROM THE GAS ROLLER OPERATOR NURSE AT BEDSIDE FOR CONTINUITY OF CARE . PT IS AWAKE AND ORIENTED. FAMILY AT BEDSIDE. INTRODUCED SELF AND UPDATE THE BOARD. C/O BEING COLD. GOT HER ANOTHER BLANKET. PT HAS IV R FA 20G SL. NC O2 4L, SATURATION AT 100% NO RESP DISTRESS NOTED. NO SOB. DENIES PAIN. BLE EDEMA, PITTING 2+.ECCHYMOSIS ON BILATERAL AC D/T PREVIOUS HOSPITALIZATION. WILL CONTINUE TO MONITOR PT AND ADMISSION PROCESS.
--- NOTE | 2016-10-23 07:36 | NUR ---
PT CAME IN FROM ER VIA GURNEY. PT AAOX4 ON NONREBREATHER MASK AT 100% O2. PT HAS 20G IV ON L AC. FAMILY IS AT BEDSIDE. DISCUSSED THE PLAN OF CARE WITH PATIENT AND FAMILY, PT AND FAMILY VERBALIZED UNDERSTANDING. PT SKIN IS INTACT WITH BILATERAL AC ECCHYMOSIS. PT IN STABLE CONDITION, NO SIGNS OF DISTRESS NOTED. BED IN LOW POSITION, CALL LIGHT WITHIN REACH. WILL CONTINUE TO MONITOR. Addendum: 10/23/16 at 0740 by Pearl Herring RN DISREGARD, WRONG TIME.
[2016-10-23 08:00] VITALS: BP 99/61
--- NOTE | 2016-10-23 08:00 | NUR ---
PT V/S WITHIN NORMAL RANGE. NO PAIN. WILL CONTINUE TO MONITOR PT.
--- NOTE | 2016-10-23 08:40 | NUR ---
CALLED RT TO ASSESS PT. PT STATES SHE IS SOB. O2 SAT IS AT 100%. REQUEST BREATHING TX.
[2016-10-23] MEDS: IPRATROPIUM 0.02% 0.5 MG/2.5 ML NEBU INH SCH ×3 (08:48→19:48)
[2016-10-23] MEDS: ALBUTEROL 0.083% 2.5 MG/3 ML NEBU INH SCH ×3 (08:48→19:48)
--- NOTE | 2016-10-23 08:55 | NUR ---
DECREASED FIO2 TO 3LNC
[2016-10-23] MEDS ORDERED: AMOXIL/CLAVULANATE 500/125 MG 1 TAB PO SCH (09:00)
[2016-10-23] MEDS ORDERED: ISOSORBIDE DINITRATE 10 MG TAB PO SCH (09:00)
[2016-10-23] MEDS: LISINOPRIL 5 MG TAB PO SCH (09:06)
--- NOTE | 2016-10-23 10:25 | NUR ---
PATIENT HAS BEEN SCREENED AND CATEGORIZED MODERATE NUTRITION RISK. PATIENT WILL BE SEEN WITHIN 3-5 DAYS OF ADMISSION. 10/25/16-10/27/[address]
--- NOTE | 2016-10-23 10:30 | NUR ---
US CALLED. NOT ENOUGH FLUIDS IN THE PLEURAL SPACE. SPOKE TO MD. CANCELLED THORACENTESIS FOR TODAY. WILL KEEP MONITORING PT.
[2016-10-23 10:49] LABS: APPEARANCE,URINE HAZY (CLEAR); BILIRUBIN,URINE NEGATIVE (NEGATIVE); BLOOD, URINE 3+ (NEGATIVE); COLOR,URINE YELLOW (YELLOW); LEUKOCYTE ESTERASE ,URINE NEGATIVE (NEGATIVE); NITRITE, URINE NEGATIVE (NEGATIVE); UGLUCOSE NEGATIVE (NEGATIVE)
[2016-10-23 11:00] LABS: RBC,URINE 80-100 /HPF (0-5); WBC,URINE 0-5 (RARE) /HPF (0-5)
[2016-10-23 11:01] LABS: URIC ACID CRYSTALS,URINE 0-10 /HPF (None Seen)
[2016-10-23] MEDS ORDERED: VANCOMYCIN PER PHARMACY MC PRN (11:10)
[2016-10-23] MEDS ORDERED: VANCOMYCIN 750 MG in DEXTROSE 5% 250 ML IV SCH (12:00)
--- NOTE | 2016-10-23 12:17 | NUR ---
ADMINISTERED VANCO. PT TOLERATING WELL. FAMILY AT BEDSIDE. NOTIFIED THEM THAT THORACENTESIS WAS CANCELLED. WILL CONTINUE TO MONITOR PT.
[2016-10-23] MEDS: ISOSORBIDE DINITRATE 10 MG TAB PO SCH (12:21)
--- NOTE | 2016-10-23 14:50 | NUR ---
PULLED PT UP ON BED. POSITIONED PT TO L LATERAL. PT IS NOW COMFORTABLE. WILL GO TO SLEEP. MET ALL NEEDS. CALL LIGHT WITHIN REACH. BED IN LOWEST POSITION. WILL CONTINUE TO MONITOR PT.
[2016-10-23 16:00] VITALS: BP 115/67
--- NOTE | 2016-10-23 16:00 | NUR ---
PT SLEEPING SOUNDLY. NO SIGNS OF DISTRESS. WILL CONTINUE TO MONITOR PT.
[2016-10-23] MEDS: AMOXIL/CLAVULANATE 500/125 MG 1 TAB PO SCH (16:57)
--- NOTE | 2016-10-23 18:00 | NUR ---
PT SITTING ON SIDE OF BED, EATING DINNER. DAUGHTER AT BEDSIDE, STANDBY ASSIST. NO COMPLAINTS AT THIS TIME. WILL CONTINUE TO MONITOR PT.
--- NOTE | 2016-10-23 19:30 | NUR ---
ENDORSED PT TO THE ICU MANAGER NURSE AT BEDSIDE FOR CONTINUITY OF CARE. PT IN STABLE CONDITION.
--- NOTE | 2016-10-23 19:31 | NUR ---
Patient's Plan of Care was discussed and reviewed with SPRAY MIXER: MAINE SERRANO
--- NOTE | 2016-10-23 19:31 | NUR ---
RECD. RESTING IN BED, AWAKE, A/OX4, RESPIRATION EVEN AND UNLABORED. IV SALINE LOCK AT THE RIGHT FOREARM G20, PATENT AND INTACT. WATCHING TV. DENIES COUGHING OUT OF PHLEGM. INSTRUCTED TO CALL NURSE BEFORE GETTING OOB FOR ASSISTANCE. SAFETY MEASURES ENFORCED. PLAN OF CARE FOR THE SHIFT DISCUSSED. VERBALIZED UNDERSTANDING. DENIES PAIN 0/10.
[2016-10-23] MEDS: SIMVASTATIN 20 MG TAB PO SCH (21:13)
--- NOTE | 2016-10-23 21:15 | NUR ---
DUE PO MEDICATION GIVEN. WENT BACK TO SLEEP AFTER TAKING HER MEDICATION.
[2016-10-24 01:40] VITALS: BP 155/78
--- NOTE | 2016-10-24 01:40 | NUR ---
SITTING ON BED, REQUESTED FOR PAIN MEDICATION.
[2016-10-24] MEDS: MORPHINE SULFATE 2 MG/ML SYR IVP PRN ×3 (01:44→19:19)
[2016-10-24] MEDS: IPRATROPIUM 0.02% 0.5 MG/2.5 ML NEBU INH SCH ×5 (01:57→13:45)
[2016-10-24] MEDS: ALBUTEROL 0.083% 2.5 MG/3 ML NEBU INH SCH ×5 (01:57→13:45)
--- NOTE | 2016-10-24 03:40 | NUR ---
ASSISTED BY CARBON ACCOUNTANT TO GO TO BSC TO VOID, BACK TO BED AFTER VOIDING, SAFETY MAINTAINED.
--- NOTE | 2016-10-24 07:00 | NUR ---
CONDITION REMAIN STABLE.WILL ENDORSE TO AM NURSE F0R CONTINUITY OF CARE.
--- NOTE | 2016-10-24 07:20 | NUR ---
REPORT RECEIVED FROM [employer] INSTRUCTOR NURSE, PT SLEEPING, RESP EVEN UNLABORED ON 2L NC O2, PT AROUSES EASILY BY VOICE, INITIAL ASSESSMENT DONE, DENIES PAIN OR DISCOMFORT, PLAN OF CARE REVIEWED, PT VERBALIZED UNDERSTANDING, CALL CABALLERO WITHIN REACH, SIDE RAILS UP X2, BED LOCKED IN LOW POSITION, WILL CONTINUE TO MONITOR.
[2016-10-24 07:38] LABS: BASOPHILS # (AUTO) 0.1 K/uL (0.00-0.22); BASOPHILS % (AUTO) 0.6 % (0.0-2.0); EOSINOPHILS % (AUTO) 0.3 % (0.0-4.0); HEMATOCRIT 27.3 % (36-48); LYMPHOCYTES # (AUTO) 1.1 K/uL (2.5-16.5); LYMPHOCYTES % (AUTO) 8.2 % (20.5-51.1); MEAN CORPUSCULAR HEMOGLOBIN 31 pg (27-31); MEAN CORPUSCULAR HGB CONC 33 g/dL (33-37); MEAN CORPUSCULAR VOLUME 95 fL (80-94); MONOCYTES # (AUTO) 0.6 K/uL (0.8-1.0); MONOCYTES % (AUTO) 4.8 % (1.7-9.3); NEUTROPHILS # (AUTO) 11.7 K/uL (1.8-7.7); NEUTROPHILS % (AUTO) 86.1 % (42.2-75.2); PLATELET COUNT (AUTO) 311 K/uL (140-450); RED BLOOD CELL COUNT(AUTO) 2.87 MIL/uL (4.20-5.40); RED CELL DISTRIBUTION WIDTH 11.9 % (11.6-13.7); WHITE BLOOD COUNT (AUTO) 13.5 K/uL (4.8-10.8)
[2016-10-24 07:45] LABS: ANION GAP 11.3 (8-16); ASPARTATE AMINOTRANSFERASE 31 U/L (15-37); CARBON DIOXIDE 29.2 mmol/L (21-32); CHLORIDE 100 mmol/L (98-107); CREATININE 1.3 mg/dL (0.6-1.3); GLUCOSE 85 mg/dL (74-106); POTASSIUM 4.5 mmol/L (3.5-5.1); SODIUM SERUM 136 mmol/L (136-145); TOTAL BILIRUBIN 0.4 mg/dL (0.0-1.0); UREA NITROGEN, BLOOD 17 mg/dL (7-18)
[2016-10-24 08:00] VITALS: BP 137/65
[2016-10-24] MEDS: LISINOPRIL 5 MG TAB PO SCH (08:46)
[2016-10-24] MEDS: ISOSORBIDE DINITRATE 10 MG TAB PO SCH ×2 (08:47→13:05)
[2016-10-24] MEDS: AMOXIL/CLAVULANATE 500/125 MG 1 TAB PO SCH ×2 (08:47→18:06)
[2016-10-24] MEDS ORDERED: VANCOMYCIN 1,000 MG in DEXTROSE 5% 250 ML IV SCH (12:00)
[2016-10-24] MEDS ORDERED: VANCOMYCIN 1GM/DEXT 5% PREMIX 200 ML IV SCH ×2 (12:00→12:10)
--- NOTE | 2016-10-24 12:58 | NUR ---
VACOMYCIN IVPB STARTED. IV SITE WITHIN NORMAL LIMITS. PATIENT SITTING UP FOR LUNCH. RESPIRATIONS EVEN, UNLABORED. PT REMAINS ON O2 2L VIA NC. PATIENT STATES LEG PAIN HAS IMPROVED AFTER MORPHINE. WILL CONTINUE TO MONITOR.
--- NOTE | 2016-10-24 13:41 | NUR ---
called to bedside for breathing tx pt is sitting on side of bed with family at bedside and pts heart rate is 124 bpm o2 sat on 2lnc is 98% rn osiris at bedside no tx will be given due to high heart rate
--- NOTE | 2016-10-24 13:53 | NUR ---
RT REPORTS PATIENT HEART RATE IS 120-124, O2 SAT 99% ON 2L VIA NC. PATIENT AWAKE, ALERT, SITTING UP AT SIDE OF BED. NO ACUTE DISTRESS NOTED. DENIES ANY CHEST PAIN. DENIES SHORTNESS OF BREATH. NEBULIZER TREATMENT WITHHELD PER RT DUE TO INCREASED HEART RATE. DR. ANNE AT BEDSIDE, NOTIFIED CURRENT STATUS OF PATIENT. AWAITING FURTHER ORDERS. WILL CONTINUE TO MONITOR PATIENT.
--- NOTE | 2016-10-24 14:42 | NUR ---
PT PLACED ON TELE MONITOR
--- NOTE | 2016-10-24 15:05 | NUR ---
PT ASSISTED TO BEDSIDE PAMELA LACEY, PT RETURNED BACK TO BED, POSITIONED FOR COMFORT, FAMILY AT BEDSIDE, WILL CONTINUE TO MONITOR. Addendum: 10/24/16 at 1638 by Brandie Salas RN HR [id number] ON MONITOR AT THIS TIME.
[2016-10-24 16:00] VITALS: BP 107/67
[2016-10-24] MEDS ORDERED: DIGOXIN 0.125 MG TAB PO SCH (16:25)
--- NOTE | 2016-10-24 18:06 | NUR ---
AUGMENTIN AND DIGOXIN GIVEN ORDERED. TOLERATED WELL. NO S/S OF DISTRESS NOTED. WILL CONTINUE TO MONITOR.
--- NOTE | 2016-10-24 19:19 | NUR ---
REPORT GIVEN TO PHLEBOTOMIST ASSOCIATE NURSE CARMINE, PT IN STABLE CONDITION, MEDICATED WITH MORPHINE AT THIS TIME FOR C/O BILAT LEG PAIN.
--- NOTE | 2016-10-24 19:30 | NUR ---
RECEIVED PT IN STABLE CONDITION FROM AM NURSE. AWAKE,ALERT AND ORIENTED X4. WITH NO ACUTE RESPIRATORY DISTRESS NOTED. ON O22L/NC. GETTING BREATHING TREATMENT Q6H. HAS HL ON THE RT FA G#20. CLEAR AND PATENT. SKIN INTACT , JUST BRUISED ON LT UPPER ARM. EDEMA ON BLE. NEED ASSISTANCE TO BSC . PLAN OF CARE DISCUSSED , VERBALIZED UNDERSTANDING. CALL LIGHT PLACED WITHIN EASY REACH. WILL CONTINUE TO MONITOR.
--- NOTE | 2016-10-24 19:37 | NUR ---
UNABLE TO SCAN MEDICATION DUE TO 1900 MED TIME WAS ALREADY SCANNED NON ADMINISTERED. WILL GIVE HHNTX BUT UNABLE TO SCAN MED. WILL SCAN THE 0 TIME MED.
[2016-10-24 21:30] VITALS: BP 104/59
[2016-10-24] MEDS: SIMVASTATIN 20 MG TAB PO SCH (21:37)
--- NOTE | 2016-10-24 22:00 | NUR ---
M,[place] . ASLEEP. NO S/S OF ANY DISCOMFORT NOR PAIN NOTED.
[2016-10-25] MEDS: IPRATROPIUM 0.02% 0.5 MG/2.5 ML NEBU INH SCH ×4 (00:31→19:00)
[2016-10-25] MEDS: ALBUTEROL 0.083% 2.5 MG/3 ML NEBU INH SCH ×4 (00:31→19:00)
--- NOTE | 2016-10-25 03:30 | NUR ---
ASSISTED UP TO BSC. NO S/OB NOTED WITH O22L/NC.
[2016-10-25 04:00] VITALS: BP 113/66
--- NOTE | 2016-10-25 06:00 | NUR ---
ASLEEP. NO S/S OF ANY DISTRESS NOTED.
[2016-10-25 06:12] LABS: BASOPHILS # (AUTO) 0.1 K/uL (0.00-0.22); BASOPHILS % (AUTO) 0.7 % (0.0-2.0); EOSINOPHILS # (AUTO) 0.2 K/uL (0-0.4); EOSINOPHILS % (AUTO) 1.4 % (0.0-4.0); HEMOGLOBIN 8.5 g/dL (12.0-16.0); LYMPHOCYTES # (AUTO) 1.3 K/uL (2.5-16.5); LYMPHOCYTES % (AUTO) 10.8 % (20.5-51.1); MEAN CORPUSCULAR HEMOGLOBIN 31 pg (27-31); MEAN CORPUSCULAR HGB CONC 33 g/dL (33-37); MEAN CORPUSCULAR VOLUME 96 fL (80-94); MONOCYTES # (AUTO) 0.8 K/uL (0.8-1.0); MONOCYTES % (AUTO) 6.7 % (1.7-9.3); NEUTROPHILS # (AUTO) 9.9 K/uL (1.8-7.7); NEUTROPHILS % (AUTO) 80.4 % (42.2-75.2); PLATELET COUNT (AUTO) 291 K/uL (140-450); RED BLOOD CELL COUNT(AUTO) 2.71 MIL/uL (4.20-5.40); RED CELL DISTRIBUTION WIDTH 12.1 % (11.6-13.7)
[2016-10-25 06:48] LABS: ANION GAP 8.4 (8-16); CARBON DIOXIDE 32.1 mmol/L (21-32); CHLORIDE 101 mmol/L (98-107); CREATININE 1.5 mg/dL (0.6-1.3); GLUCOSE 90 mg/dL (74-106); POTASSIUM 4.5 mmol/L (3.5-5.1); SODIUM SERUM 137 mmol/L (136-145); UREA NITROGEN, BLOOD 19 mg/dL (7-18)
[2016-10-25 07:22] LABS: WHITE BLOOD COUNT (AUTO) 12.3 K/uL (4.8-10.8)
--- NOTE | 2016-10-25 07:27 | NUR ---
ENDORSED PT IN STABLE CONDITION TO AM NURSE.
--- NOTE | 2016-10-25 07:28 | NUR ---
RECEIVED REPORT FROM CONTENT SPECIALIST NURSE AT BEDSIDE FOR CONTINUITY OF CARE. PT IS AWAKE AND ORIENTED. INTRODUCED SELF AND UPDATED BOARD.
[2016-10-25 08:00] VITALS: BP_SYST 113; BP_SYST 114; BP_DIAS 65; BP_DIAS 71
[2016-10-25] MEDS: ISOSORBIDE DINITRATE 10 MG TAB PO SCH ×2 (08:52→13:27)
[2016-10-25] MEDS: LISINOPRIL 5 MG TAB PO SCH (08:52)
--- NOTE | 2016-10-25 08:52 | NUR ---
ADMINISTERED SCHEDULED MEDS. PT TOLERATED WELL. PT STATED SHE WAS HAVING TROUBLE BREATHING. INSTRUCTED PT TO TAKE DEEP BREATHING EXERCISES AND RELAXATION. PT HAD NON-PRODUCTIVE COUGH. LUNG SOUNDS DIMINISHED THROUGHOUT. O2 SAT AT 100% WITH O2 DELIVERY VIA NC 2L/MIN. PT SAT UP AT EDGE OF BED AND NO LONGER STATED TROUBLE BREATHING. REPOSITED BACK IN BED WITH HOB AT 30 DEGREES. PT DENIES PAIN AND HAS NO OTHER COMPLAINTS AT THIS TIME. WILL CONTINUE TO MONITOR.
--- NOTE | 2016-10-25 08:56 | NUR ---
PT PICKED UP BY [facility] VIA WHEELCHAIR FOR CHEST X-RAY
--- NOTE | 2016-10-25 10:30 | NUR ---
PT REFUSED BREAKFAST. OFFERED JUICE INSTEAD. ASSISTED PT TO [facility] STANDBY ASSIST. PT VOIDED 150ML. ASSISTED BACK TO BED WITH HOB ELEVATED. WILL CONTINUE TO MONITOR PT.
[2016-10-25 12:00] VITALS: BP 110/70
[2016-10-25] MEDS: AMOXIL/CLAVULANATE 500/125 MG 1 TAB PO SCH ×2 (12:13→17:33)
[2016-10-25] MEDS: MORPHINE SULFATE 2 MG/ML SYR IVP PRN (12:13)
--- NOTE | 2016-10-25 12:13 | NUR ---
ADMINISTERED SCHEDULED MEDS AND MORPHINE FOR PAIN. PT STATED PAIN 6/10 ON LOWER BACK. PT TOLERATED MEDS WELL. FAMILY IS AT BEDSIDE.
--- NOTE | 2016-10-25 13:27 | NUR ---
CHECKED ON PT IN ROOM. RESTING COMFORTABLY IN BED. ADMINISTERED SCHEDULED MEDS. PT TOLERATED WELL. PT DENIES PAIN STATED WAS RELIEVED BY PAIN MED. PT'S DAUGHTER IS AT BEDSIDE. NO COMPLAINTS AT THIS TIME. WILL CONTINUE TO MONITOR.
[2016-10-25 16:00] VITALS: BP 107/57
--- NOTE | 2016-10-25 16:06 | NUR ---
Clinical review faxed to [facility]
--- NOTE | 2016-10-25 17:33 | NUR ---
PT REFUSED DINNER. STATED SHE WANTED TO HAVE FOOD THAT IS SOFT IN TEXTURE. CALLED [facility] AND ORDERED SOUP FOR DINNER AND WILL GET ORDER TO CHANGE DIET TEXTURE TO SOFT FOODS. FAMILY IS AT BEDSIDE. ADMINISTERED MEDS. PT TOLERATED WELL. PT DENIES TROUBLE BREATHING. PT STILL HAS O2 DELIVERY NC 2L/MIN.
--- NOTE | 2016-10-25 19:25 | NUR ---
ENDORSED PT TO DRAG DOWN NURSE AT BEDSIDE FOR CONTINUITY OF CARE. PT IN STABLE CONDITION. FAMILY MEMBERS AT BEDSIDE.
--- NOTE | 2016-10-25 19:25 | NUR ---
RECEIVED PT ON BED, AAOX4, VITAL SIGNS STABLE, ST ON TELE, ASYMPTOMATIC, DENIES ANY PAIN, NO SOB NOTED, ON O2 AT 2L/NC, BREATHING TX PER RT, PLAN OF CARE DISCUSSED, SAFETY MEASURES IN PLACE, CALL LIGHT WITHIN REACH.
[2016-10-25 20:00] VITALS: BP 98/61
[2016-10-25] MEDS: SIMVASTATIN 20 MG TAB PO SCH (21:31)
--- NOTE | 2016-10-25 21:35 | NUR ---
DUE PO MEDICATION GIVEN WITH EDUCATION PROVIDED, ALL NEEDS ATTENDED.
--- NOTE | 2016-10-25 22:30 | NUR ---
WITH ORDER FOR CT CHEST WITH AND WITHOUT CONTRAST AND ULTRASOUND GUIDED THORACENTESIS TOMORROW, CONTRAST QUESTIONNAIRE ANSWERED AND SIGNED, CONSENT FOR THORACENTESIS SIGNED, PER PT TO CALL DAUGHTER IN AM TO LET HER KNOW, ALL NEEDS ATTENDED.
[2016-10-26] VITALS: BP 112/56
--- NOTE | 2016-10-26 | NUR ---
PT SLEEPING, EASILY AROUSABLE, VITAL SIGNS STABLE, DENIES ANY PAIN, NO SOB NOTED, ASSIST IN REPOSITIONING, NPO AFTER MIDNIGHT FOR CT CHEST WITH AND WITHOUT CONTRAST IN AM, CONTINUE TO MONITOR CLOSELY.
[2016-10-26] MEDS: IPRATROPIUM 0.02% 0.5 MG/2.5 ML NEBU INH SCH ×4 (01:00→19:55)
[2016-10-26] MEDS: ALBUTEROL 0.083% 2.5 MG/3 ML NEBU INH SCH ×4 (01:00→19:55)
[2016-10-26] MEDS: MORPHINE SULFATE 2 MG/ML SYR IVP PRN ×2 (01:45→05:31)
--- NOTE | 2016-10-26 02:00 | NUR ---
PT ASSISTED TO BEDSIDE COMMODE BY JAYDON WAYNE, VOIDED FREELY, COMPLAINING OF CHEST PAIN AFTER GOING BACK TO BED, SOB NOTED, IV LINE LEAKING, NEW IV LINE STARTED ON LEFT HAND, MEDICATED PRN FOR PAIN WITH MORPHINE IVP, HOB ELEVATED FOR COMFORT, MONITORED CLOSELY.
[2016-10-26 04:30] VITALS: BP 126/76
--- NOTE | 2016-10-26 04:40 | NUR ---
PT SLEEPING, VITAL SIGNS STABLE, SAT-91% ON O2 2L/NC, NO SOB NOTED, PAGED RT AND TALKED TO SOFIA AND MADE AWARE OF SATURATION, SAID IT'S LINDA IF IT'S WITHIN 88% TO 92%, MONITORED CLOSELY.
--- NOTE | 2016-10-26 05:00 | NUR ---
PT WOKE UP SAYING SHE CAN'T BREATH AND FEELING ANXIOUS, PUT ON SITTING POSITION ON SIDE OF BED, HR-130'S, TACHYPNEIC, SAT-88% ON 2L, RT SOFIA CAME IN THE ROOM, O2 INCREASED TO 4L, ENCOURAGE TO RELAX AND TAKE DEEP BREATHS, PT REPOSITIONED ON HIGH FOWLERS POSITION, SAT WENT UP TO 93% AND HR-112, PT VERBALIZED FEELING BETTER, MONITORED CLOSELY.
[2016-10-26 06:11] LABS: BASOPHILS # (AUTO) 0.1 K/uL (0.00-0.22); BASOPHILS % (AUTO) 0.9 % (0.0-2.0); EOSINOPHILS # (AUTO) 0.1 K/uL (0-0.4); EOSINOPHILS % (AUTO) 0.6 % (0.0-4.0); HEMATOCRIT 27.9 % (36-48); LYMPHOCYTES # (AUTO) 1.7 K/uL (2.5-16.5); MEAN CORPUSCULAR HEMOGLOBIN 31 pg (27-31); MEAN CORPUSCULAR HGB CONC 32 g/dL (33-37); MEAN CORPUSCULAR VOLUME 96 fL (80-94); MONOCYTES # (AUTO) 0.8 K/uL (0.8-1.0); MONOCYTES % (AUTO) 5.4 % (1.7-9.3); NEUTROPHILS # (AUTO) 12.6 K/uL (1.8-7.7); NEUTROPHILS % (AUTO) 82.1 % (42.2-75.2); PLATELET COUNT (AUTO) 326 K/uL (140-450); RED CELL DISTRIBUTION WIDTH 12.4 % (11.6-13.7)
--- NOTE | 2016-10-26 06:20 | NUR ---
PT SLEEPING, NO SIGNS OF DISTRESS, SAT-92%, HR-105, CONTINUE TO MONITOR CLOSELY.
--- NOTE | 2016-10-26 06:37 | NUR ---
PATIENT'S HEART RATE HAS BEEN ELEVATED FOR THE ENTIRE SHIFT. SATURATION IS STABLE NO RESP DISTRESS. TX'S HELD AND RT WILL MONITOR PATIENT CLOSELY. RN NOTIFIED AND AWARE OF THE ELEVATED HEART RATE
[2016-10-26 06:38] LABS: ANION GAP 13.7 (8-16); CARBON DIOXIDE 27.6 mmol/L (21-32); CHLORIDE 100 mmol/L (98-107); CREATININE 1.4 mg/dL (0.6-1.3); GLUCOSE 103 mg/dL (74-106); POTASSIUM 4.3 mmol/L (3.5-5.1); SODIUM SERUM 137 mmol/L (136-145); UREA NITROGEN, BLOOD 21 mg/dL (7-18)
--- NOTE | 2016-10-26 07:20 | NUR ---
RECEIVED REPORT FROM DCS ENGINEER NURSE PT IS SITTING UP IN BED, A/OX4, AMBULATES WITH ASSIST, PT IS ON O2 3L NC, SKIN IS INTACT, NO S/S OF RESPIRATORY DISTRESS OR DISCOMFORT NOTED, DISCUSSED PLAN OF CARE WITH PT, PT VERBALIZED UNDERSTANDING, CALL LIGHT WITHIN REACH, WILL CONTINUE TO MONITOR.
--- NOTE | 2016-10-26 07:20 | NUR ---
PT AWAKE, ON HIGH FOWLERS POSITION, REPORT GIVEN TO DARREN SERRANO FOR CONTINUITY OF CARE.
[2016-10-26 08:00] VITALS: BP 142/76
[2016-10-26 08:25] LABS: WHITE BLOOD COUNT (AUTO) 15.3 K/uL (4.8-10.8)
[2016-10-26] MEDS: LISINOPRIL 5 MG TAB PO SCH (08:35)
[2016-10-26] MEDS: ISOSORBIDE DINITRATE 10 MG TAB PO SCH ×2 (08:35→13:57)
[2016-10-26] MEDS: AMOXIL/CLAVULANATE 500/125 MG 1 TAB PO SCH ×2 (08:35→17:02)
--- NOTE | 2016-10-26 08:35 | NUR ---
DUE MEDICATIONS GIVEN, PT TOLERATED WELL, PATIENT'S DAUGHTER IS AT BEDSIDE, CALL LIGHT WITHIN REACH.
[2016-10-26] MEDS ORDERED: VANCOMYCIN HCL 750 MG in DEXTROSE 5% 250 ML IV SCH (11:00)
--- NOTE | 2016-10-26 11:52 | NUR ---
10/26/16 RD INITIAL ASSESSMENT COMPLETED PLEASE REFER TO NUTRITION ASSESSMENT UNDER CARE ACTIVITY FOR ESTIMATED NUTRITIONAL NEEDS. 1. CONTINUE 2G SODIUM DIET (WITH TEXTURE PER ST RECOMMENDATIONS) 2. REFER TO SPEECH THERAPY FOR SWALLOW EVALUATION 3. RD TO FOLLOW-UP 2-3 DAYS, HIGH RISK ROXY GUNDERSON, GONZALES
[2016-10-26 12:00] VITALS: BP 111/71
--- NOTE | 2016-10-26 13:31 | NUR ---
PT IS ABOUT TO HAVE THORACENTESIS DONE. RN AND ULTRASOUND TEXH IN ROOM. HHN TX NOT GIVEN. WILL CONTINUE TO MONITOR.
[2016-10-26 16:00] VITALS: BP 98/60
--- NOTE | 2016-10-26 16:07 | NUR ---
DR. CHAVEZ HERE TO SEE PT, PER. DOCTOR MAKE PT NPO AFTER MIDNIGHT, START D5 1/2NC WITH KCL10 @ 50ML/HR AFTER PT IS NPO. WILL DO BRONCHOSCOPY TOMORROW AT 0730, PT SIGNED CONSENT.
--- NOTE | 2016-10-26 17:25 | NUR ---
PATIENT IS SITTING IN BED, NO S/S OF RESPIRATORY DISTRESS OR DISCOMFORT NOTED, CALL LIGHT WITHIN REACH.
--- NOTE | 2016-10-26 19:30 | NUR ---
ENDORSED PT TO COSMETICIAN NURSE FOR CONTINUITY OF CARE, PT STABLE AT THIS TIME.
[2016-10-26 20:00] VITALS: BP 102/66
--- NOTE | 2016-10-26 20:20 | NUR ---
PT BACK FROM CT DEPT PER WHEELCHAIR, TRANSFERRED TO BED AND RESUMED O2 AT 2L/NC, HOB ON FOWLERS POSITION, NO SOB NOTED.
[2016-10-26] MEDS: SIMVASTATIN 20 MG TAB PO SCH (20:46)
--- NOTE | 2016-10-26 21:40 | NUR ---
PT ASSISTED BY IT SECURITY ADMINISTRATOR TO BEDSIDE COMMODE AND VOIDED FREELY, ALL NEEDS ATTENDED.
[2016-10-27] VITALS (7 sets, daily range): BP systolic 110–155; BP diastolic 63–77
[2016-10-27] MEDS: POTASSIUM CHL 10 MEQ/D5-1/2NS 1,000 ML IV SCH ×2 (00:04→20:00)
--- NOTE | 2016-10-27 00:10 | NUR ---
PT SLEEPING ON FOWLERS POSITION, EASILY AROUSABLE, VITAL SIGNS STABLE, DENIES ANY PAIN, NO SOB NOTED, INSTRUCTED NPO AFTER MIDNIGHT, D5 1/2 NS +10 MEQ KCL STARTED AT 50ML/H, CALL LIGHT WITHIN REACH, CONTINUE TO MONITOR CLOSELY.
[2016-10-27] MEDS: IPRATROPIUM 0.02% 0.5 MG/2.5 ML NEBU INH SCH ×4 (01:00→19:00)
[2016-10-27] MEDS: ALBUTEROL 0.083% 2.5 MG/3 ML NEBU INH SCH ×4 (01:00→19:00)
--- NOTE | 2016-10-27 01:32 | NUR ---
PATIENT SLEEPING DID NOT GIVE HHNTX. RN CARMELA WILL CALL IF PATIENT NEEDS HHNTX. NO SOB NOTED SATS 99%
--- NOTE | 2016-10-27 02:50 | NUR ---
PT ASSISTED BY JAYDON HORNE TO BEDSIDE COMMODE, VOIDED FREELY.
--- NOTE | 2016-10-27 04:00 | NUR ---
PT SLEEPING, EASILY AROUSABLE, VITAL SIGNS STABLE, NO SOB NOTED, MAINTAINED ON NPO, IVF INFUSING WELL, MONITORED CLOSELY.
--- NOTE | 2016-10-27 06:10 | NUR ---
PT SLEEPING, NO SIGNS OF RESP DISTRESS, MONITORED CLOSELY.
[2016-10-27 06:33] LABS: BASOPHILS # (AUTO) 0.1 K/uL (0.00-0.22); BASOPHILS % (AUTO) 0.9 % (0.0-2.0); EOSINOPHILS # (AUTO) 0.2 K/uL (0-0.4); EOSINOPHILS % (AUTO) 1.3 % (0.0-4.0); HEMATOCRIT 26.1 % (36-48); HEMOGLOBIN 8.4 g/dL (12.0-16.0); LYMPHOCYTES # (AUTO) 1.3 K/uL (2.5-16.5); LYMPHOCYTES % (AUTO) 9.7 % (20.5-51.1); MEAN CORPUSCULAR HEMOGLOBIN 31 pg (27-31); MEAN CORPUSCULAR HGB CONC 32 g/dL (33-37); MEAN CORPUSCULAR VOLUME 96 fL (80-94); MONOCYTES % (AUTO) 7.2 % (1.7-9.3); NEUTROPHILS # (AUTO) 11.1 K/uL (1.8-7.7); NEUTROPHILS % (AUTO) 80.9 % (42.2-75.2); PLATELET COUNT (AUTO) 305 K/uL (140-450); RED BLOOD CELL COUNT(AUTO) 2.73 MIL/uL (4.20-5.40); RED CELL DISTRIBUTION WIDTH 12.4 % (11.6-13.7); WHITE BLOOD COUNT (AUTO) 13.7 K/uL (4.8-10.8)
[2016-10-27 06:56] LABS: PROTHROMBIN TIME 11.3 secs (10.8-13.4)
[2016-10-27 07:20] LABS: ANION GAP 10.5 (8-16); CARBON DIOXIDE 29.4 mmol/L (21-32); CHLORIDE 100 mmol/L (98-107); CREATININE 1.4 mg/dL (0.6-1.3); GLUCOSE 113 mg/dL (74-106); POTASSIUM 3.9 mmol/L (3.5-5.1); SODIUM SERUM 136 mmol/L (136-145); UREA NITROGEN, BLOOD 21 mg/dL (7-18)
--- NOTE | 2016-10-27 07:25 | NUR ---
PT TO OR PER BED FOR BRONCHOSCOPY, REPORT GIVEN TO RN MADALYN FOR CONTINUITY OF CARE.
--- NOTE | 2016-10-27 07:26 | NUR ---
REPORT RECEIVED FROM NIGHT NURSE BEAR CASEY TAKEN TO OR FOR BRONCHOSCOPY AT THIS TIME.
[2016-10-27] MEDS ORDERED: ETOMIDATE 20 MG/10 ML VIAL IVP ONE (07:40)
[2016-10-27] MEDS ORDERED: ALBUTEROL HFA MDI 90 MCG/ACTUATION 8 GM INH ONE (07:40)
[2016-10-27] MEDS ORDERED: DESFLURANE 240 ML BTL INH ONE (07:40)
[2016-10-27] MEDS ORDERED: MIDAZOLAM 2 MG/2 ML VIAL ONE (07:48)
[2016-10-27] MEDS ORDERED: fentaNYL 0.05 MG/ML VIAL ONE (07:49)
[2016-10-27] MEDS: ISOSORBIDE DINITRATE 10 MG TAB PO SCH ×2 (08:00→12:27)
[2016-10-27] MEDS: AMOXIL/CLAVULANATE 500/125 MG 1 TAB PO SCH ×2 (08:00→17:26)
[2016-10-27] MEDS ORDERED: IPRATROPIUM 0.02% 0.5 MG/2.5 ML NEBU INH ONE (08:35)
[2016-10-27] MEDS ORDERED: IPRATROPIUM 0.02% 0.5 MG/2.5 ML NEBU INH PRN (08:40)
[2016-10-27] MEDS: ALBUTEROL 0.083% 2.5 MG/3 ML NEBU INH PRN ×3 (08:50→17:52)
[2016-10-27] MEDS: LISINOPRIL 5 MG TAB PO SCH (09:00)
--- NOTE | 2016-10-27 09:25 | NUR ---
PT BACK FROM PACU, REPORT RECEIVED FROM CORIE RN, PT AWAKE ALERT, RESP EVEN UNLABORED ON NON REBREATHER MASK, BREATH SOUNDS DIMINISHED ON LEFT SIDE, CLEAR WITH GOOD AERATION ON RIGHT SIDE, PT DENIES PAIN OR DISCOMFORT AT THIS TIME, PT PLACED BACK ON TELE MONITOR, VSS, PT RE-ORIENTED TO ROOM, CALL CABALLERO WITHIN REACH, SIDE RAILS UP, BED LOCKED IN LOW POSITION, WILL CONTINUE TO MONITOR.
--- NOTE | 2016-10-27 09:50 | NUR ---
O2 SAT 100% ON NON-REBREATHER, CHANGED TO NC AT 3L, PAMELA WELL, O2 SAT 98%, PT SITTING UP TALKING WITH LOW VOICE, DAUGHTER AT BEDSIDE, WILL CONTINUE TO MONITOR.
[2016-10-27] MEDS: MORPHINE SULFATE 2 MG/ML SYR IVP PRN (12:28)
--- NOTE | 2016-10-27 12:30 | NUR ---
PT C/O THROAT PAIN WITH SWALLOWING, MORPHINE GIVEN PER PT'S REQUEST, WILL CONTINUE TO MONITOR.
--- NOTE | 2016-10-27 13:25 | NUR ---
PT UP TO BEDSIDE COMMODE WITH ASSIST, PAMELA FAIRLY WITH INCREASED WORK OF BREATHING WHEN GETTING UP.
--- NOTE | 2016-10-27 14:20 | NUR ---
CM NOTE CONCURRENT REVIEW FAXED TO [facility] / FAX# [phone], ATTN: ANDERSON [phone]
[2016-10-27] MEDS ORDERED: VANCOMYCIN PER PHARMACY MC PRN (15:15)
--- NOTE | 2016-10-27 15:34 | NUR ---
PT REPOSITIONED FOR COMFORT.
--- NOTE | 2016-10-27 18:00 | NUR ---
PT SITTING UP AT SIDE OF BED, C/O SOB, FREQ COUGHS, SPITTING UP SPUTUM, LUNG SOUNDS COARSE ON RIGHT, RT CALLED FOR PRN NEB TREATMENT.
--- NOTE | 2016-10-27 18:40 | NUR ---
PT SITTING UP EATING DINNER, STATES RESPIRATION EASIER AFTER NEB TREATMENT, DAUGHTER AT BEDSIDE, NO IMMEDIATE NEEDS AT THIS TIME, WILL CONTINUE TO MONITOR.
--- NOTE | 2016-10-27 19:29 | NUR ---
REPORT GIVEN TO SOFTWARE WRITER NURSE, PT IN STABLE CONDITION.
--- NOTE | 2016-10-27 19:31 | NUR ---
RECEIVED HANDOFF REPORT FROM AM RN. PATIENT A&OX4. PATIENT DENIES PAIN. BOTH IV SITES PATENT AND INTACT. NO SIGNS OR SYMPTOMS OF ACUTE DISTRESS NOTED. PATIENT ORIENTED TO ROOM. SAFETY MEASURES ENSURED. CALL LIGHT WITHIN REACH. WILL CONTINUE TO MONITOR.
--- NOTE | 2016-10-27 20:20 | NUR ---
[facility] DUE TO A PRN JEROMEN BELLA TAO AT [id number]
[2016-10-27] MEDS: SIMVASTATIN 20 MG TAB PO SCH (21:14)
--- NOTE | 2016-10-27 21:17 | NUR ---
PM MEDS GIVEN WITH EDUCATION. PATIENT VERBALIZED UNDERSTANDING. PATIENT DENIES PAIN. NO SIGNS OR SYMPTOMS OF ACUTE DISTRESS NOTED. CALL LIGHT WITHIN REACH. WILL CONTINUE TO MONITOR.
--- NOTE | 2016-10-27 23:40 | NUR ---
PATIENT AWAKE AND ALERT. PATIENT UP FOR BEDSIDE COMMODE. PATIENT STATES TROUBLE BREATHING, REQUESTS BREATHING TREATMENT. RT AWARE. PATIENT PLACED BACK IN BED WITH O2. NO SIGNS OR SYMPTOMS OF DISTRESS NOTED. CALL LIGHT WITHIN REACH. WILL CONTINUE TO MONITOR.
[2016-10-28] VITALS: BP 150/86
[2016-10-28] MEDS: ALBUTEROL 0.083% 2.5 MG/3 ML NEBU INH SCH ×3 (00:10→13:50)
[2016-10-28] MEDS: IPRATROPIUM 0.02% 0.5 MG/2.5 ML NEBU INH SCH ×3 (00:10→13:49)
[2016-10-28] MEDS: MORPHINE SULFATE 2 MG/ML SYR IVP PRN (00:38)
--- NOTE | 2016-10-28 01:50 | NUR ---
PATIENT SLEEPING. NO SIGNS OR SYMPTOMS OF ACUTE DISTRESS NOTED. CALL LIGHT WITHIN REACH. WILL CONTINUE TO MONITOR.
[2016-10-28 04:00] VITALS: BP 116/62
--- NOTE | 2016-10-28 05:24 | NUR ---
PATIENT SLEEPING. NO SIGNS OR SYMPTOMS OF ACUTE DISTRESS NOTED. CALL LIGHT WITHIN REACH. WILL CONTINUE TO MONITOR.
[2016-10-28 06:38] LABS: ANION GAP 12.9 (8-16); CHLORIDE 103 mmol/L (98-107); CREATININE 1.2 mg/dL (0.6-1.3); GLUCOSE 81 mg/dL (74-106); POTASSIUM 4.9 mmol/L (3.5-5.1); SODIUM SERUM 140 mmol/L (136-145); UREA NITROGEN, BLOOD 21 mg/dL (7-18)
--- NOTE | 2016-10-28 07:11 | NUR ---
ENDORSED PLAN OF CARE TO AM RN. PATIENT STABLE. NO SIGNS OR SYMPTOMS OF ACUTE DISTRESS NOTED. SAFETY MEASURES ENSURED. CALL LIGHT WITHIN REACH
--- NOTE | 2016-10-28 07:11 | NUR ---
RECEIVED REPORT FROM NIGHT NURSE, PT IS AAOX4, ON O2 3L VIA NC, IV TO LEFT HAND 22G SALINE LOCK, RIGHT AC 20G SALINE LOCK PATENT AND INTACT, SKIN INTACT, INITIAL ASSESSMENT COMPLETED, REVIEWED PLAN OF CARE WITH PT, PT VERBALIZED UNDERSTANDING, ALL SAFETY PRECAUTIONS MET, CALL LIGHT WITHIN REACH. WILL CONTINUE TO MONITOR.
[2016-10-28 08:00] VITALS: BP 148/74
[2016-10-28] MEDS: ISOSORBIDE DINITRATE 10 MG TAB PO SCH ×2 (08:41→13:00)
[2016-10-28] MEDS: LISINOPRIL 5 MG TAB PO SCH (08:41)
--- NOTE | 2016-10-28 08:42 | NUR ---
DUE MEDICATION GIVEN, PT TOLERATED WELL. PT CURRENTLY SITTING AT BED SIDE, ALL NEEDS MET, WILL CONTINUE TO MONITOR.
[2016-10-28 08:47] LABS: BASOPHILS # (AUTO) 0.7 K/uL (0.00-0.22); BASOPHILS % (AUTO) 4.5 % (0.0-2.0); EOSINOPHILS # (AUTO) 0.1 K/uL (0-0.4); EOSINOPHILS % (AUTO) 0.9 % (0.0-4.0); HEMOGLOBIN 8.9 g/dL (12.0-16.0); LYMPHOCYTES # (AUTO) 1.3 K/uL (2.5-16.5); LYMPHOCYTES % (AUTO) 8.4 % (20.5-51.1); MEAN CORPUSCULAR HEMOGLOBIN 32 pg (27-31); MEAN CORPUSCULAR HGB CONC 33 g/dL (33-37); MEAN CORPUSCULAR VOLUME 97 fL (80-94); MONOCYTES # (AUTO) 0.5 K/uL (0.8-1.0); MONOCYTES % (AUTO) 3.4 % (1.7-9.3); NEUTROPHILS # (AUTO) 12.5 K/uL (1.8-7.7); NEUTROPHILS % (AUTO) 82.8 % (42.2-75.2); PLATELET COUNT (AUTO) 262 K/uL (140-450); RED CELL DISTRIBUTION WIDTH 12.5 % (11.6-13.7)
[2016-10-28 08:50] LABS: WHITE BLOOD COUNT (AUTO) 15.1 K/uL (4.8-10.8)
[2016-10-28] MEDS ORDERED: LEVO750T2 PO (09:06)
[2016-10-28] MEDS ORDERED: METH4TAB3 PO (09:10)
--- NOTE | 2016-10-28 11:05 | NUR ---
DISCUSSED DISCHARGE PLAN WITH PT'S DAUGHTER ZANA, PT CURRENTLY RESTING IN BED NO S/S OF RESPIRATORY DISTRESS NOTED. ALL NEEDS MET, WILL CONTINUE TO MONITOR
--- NOTE | 2016-10-28 11:25 | NUR ---
PT CURRENTLY RESTING IN BED, WATCHING TV, ALL NEEDS MET, WILL CONTINUE TO MONITOR.
--- NOTE | 2016-10-28 11:27 | NUR ---
ERNESTINA NOTE PER ERNESTINA DIAZ FOR [facility], CONTRACTED HOME HEALTH WILL BE / [facility], C: [phone]. AUTH# [id number]. SHELLY BURNS MADE AWARE.
[2016-10-28 12:00] VITALS: BP 117/59
--- NOTE | 2016-10-28 12:08 | NUR ---
Social Service Note: I called and spoke with Letha from [facility] . Per Letha, inquiry can be fax to # . I faxed inquiry.
--- NOTE | 2016-10-28 12:49 | NUR ---
PT VOMITED 300ML, ALL NEEDS MET. CALL LIGHT WITHIN REACH WILL CONTINUE TO MONITOR. Addendum: 10/28/16 at 1253 by Karla Drew RN DELETE NOTE, WRONG PT
--- NOTE | 2016-10-28 13:29 | NUR ---
Social Service Note: Per Letha from [facility] , they will send a nurse to patient's home on Tuesday10/30/16.
--- NOTE | 2016-10-28 15:08 | NUR ---
PT RESTING IN BED, NO S/S OF RESPIRATORY DISTRESS NOTED. ALL NEEDS MET, WILL CONTINUE TO MONITOR.
--- NOTE | 2016-10-28 15:10 | NUR ---
CM NOTE ERNESTINA DIAZ FOR [facility], WILL BE SETTING UP HOME 02 W/ [employer] ([phone], AUTH# [id number]). ZANA, DAUGHTER TO BE HOME FOR DELIVERY OF CONCENTRATOR. 02 TANK WILL BE DELIVERED TO PATIENT AT BEDSIDE FOR TRANSPORT HOME. HARSH GODOY MADE AWARE.
[2016-10-28 16:00] VITALS: BP 105/49
[2016-10-28] MEDS ORDERED: VANCOMYCIN HCL 750 MG in DEXTROSE 5% 250 ML IV SCH (16:00)
--- NOTE | 2016-10-28 16:16 | NUR ---
PHYSICAL THERAPY CO-SIGN The Physical Therapy Progress Notes documented by Radio Repair Teacher have been reviewed. Reviewed/Co-Signed by: Taty Sosa PT Documentation Done by:JONATAN MENDOZA FINAL INSPECTOR PAPER Addendum: 10/28/16 at 1616 by Taty Sosa PT Amended: Links added.
--- NOTE | 2016-10-28 18:47 | NUR ---
ALL DISCHARGE PAPERWORK SIGNED, DISCHARGE EDUCATION GIVEN TO PT AND PT'S DAUGHTER, BOTH VERBALIZED UNDERSTANDING, FOLLOW UP INFORMATION GIVEN, PRESCRIPTION INFORMATION GIVEN, O2 TO ARRIVE TO UNIT AT 1930.
--- NOTE | 2016-10-28 19:05 | NUR ---
ENDORSED PT TO NIGHT NURSE, FOR CONTINUITY OF DISCHARGE.
--- NOTE | 2016-10-28 19:06 | NUR ---
RECEIVED REPORT FROM AM NURSE, PT IS FOR DISCHARGE AND DISCHARGE INSTRUCTION WAS GIVEN BY AM NURSE. AWAITING FOR OXYGEN TANK.
--- NOTE | 2016-10-28 19:33 | NUR ---
PT WAS BEING WHEELED OUT BY PROFESSOR OF COMMUNICATION ARTS, PT'S IV ON THE LEFT HAND AND RIGHT AC WERE REMOVED, CATHETERS INTACT. LEFT WITH DAUGHTER AND OXYGEN TANK WITH 3 L VIA NC. ALSO BROUGHT HER PERSONAL BELONGINGS WITH HER.
--- NOTE | 2016-10-28 19:33 | NUR ---
ARRIVED AT PATIENT BEDSIDE AND PATIENT IN WHEELCHAIR LEAVING, PT. DISCHARGED
== END 2016-10-28 19:33 | disposition home or self-care (01) | DRG 853 ==
LOC: MED 04:11 → MTU 05:52
PROVIDERS: ADMIT Hospitalist; ATTEND Hospitalist
PROC: 0B9G8ZX Drainage of Left Upper Lung Lobe, Via Natural or Artificial Opening Endoscopic, Diagnostic (ICD-10-PCS; 2016-10-27)
PROC: 0BB88ZX Excision of Left Upper Lobe Bronchus, Via Natural or Artificial Opening Endoscopic, Diagnostic (ICD-10-PCS; 2016-10-27)
PROC: 0B9J8ZX Drainage of Left Lower Lung Lobe, Via Natural or Artificial Opening Endoscopic, Diagnostic (ICD-10-PCS; principal; 2016-10-27 07:30)
DX: A41.9 Sepsis, unspecified organism (principal); J18.9 Pneumonia, unspecified organism; N17.9 Acute kidney failure, unspecified; J90 Pleural effusion, not elsewhere classified; J44.0 Chronic obstructive pulmonary disease with (acute) lower respiratory infection; E44.0 Moderate protein-calorie malnutrition; Z95.1 Presence of aortocoronary bypass graft; J98.19 Other pulmonary collapse; I25.10 Atherosclerotic heart disease of native coronary artery without angina pectoris; E83.52 Hypercalcemia; M19.90 Unspecified osteoarthritis, unspecified site; R91.8 Other nonspecific abnormal finding of lung field; E78.5 Hyperlipidemia, unspecified; I10 Essential (primary) hypertension; Z66 Do not resuscitate; Z68.28 Body mass index [BMI] 28.0-28.9, adult; Z88.2 Allergy status to sulfonamides; Z87.891 Personal history of nicotine dependence
CPT/HCPCS: 36415; 71010; 71020; 71250; 76604; 80048; 80053; 80202; 81001; 83605; 83880; 84484; 85025; 85610; 85730; 87081; 87205; 88305; 88312; 93005; 94640; 96365; 97110; 97116; 97140; 97530; 99285; J0171; J2250; J2270; J2543; J3010; J3370; J3490; J3535; J7030; J7060; J7613; J7644; Q0092